=== PATIENT | female | born 1995 | race Caucasian/White ===

== ENCOUNTER → 2019-06-23 12:16 | Outpatient (BNVA) | payer MEDICAID, SELFPAY | PROVIDERS: Family Provider Nurse Practitioner Family; PCP Nurse Practitioner Family; Visit Provider Specialist | DX: G40.409 Other generalized epilepsy and epileptic syndromes, not intractable, without status epilepticus (principal); F84.0 Autistic disorder | CPT/HCPCS: 99214 ==

== ENCOUNTER → 2019-08-12 08:34 | Outpatient (BNVA) | payer MEDICAID, SELFPAY | PROVIDERS: Family Provider Nurse Practitioner Family; PCP Nurse Practitioner Family; Visit Provider Specialist | DX: G24.4 Idiopathic orofacial dystonia (principal); G40.409 Other generalized epilepsy and epileptic syndromes, not intractable, without status epilepticus | CPT/HCPCS: 64612; 99212; J0585 ==

== ENCOUNTER → 2019-11-04 08:23 | Outpatient (BNVA) | payer MEDICAID, SELFPAY | PROVIDERS: Family Provider Nurse Practitioner Family; PCP Nurse Practitioner Family; Visit Provider Specialist | DX: G24.4 Idiopathic orofacial dystonia (principal) | CPT/HCPCS: 64612; 99213; J0585 ==

== ENCOUNTER → 2020-01-11 08:56 | Outpatient (BNVA) | payer MEDICAID, SELFPAY | PROVIDERS: Family Provider Nurse Practitioner Family; PCP Nurse Practitioner Family; Visit Provider Specialist | DX: G40.909 Epilepsy, unspecified, not intractable, without status epilepticus (principal); G24.4 Idiopathic orofacial dystonia | CPT/HCPCS: 99213 ==

== ENCOUNTER → 2020-01-27 08:12 | Outpatient (BNVA) | payer MEDICAID, SELFPAY | PROVIDERS: Family Provider Nurse Practitioner Family; PCP Nurse Practitioner Family; Visit Provider Specialist | DX: G24.4 Idiopathic orofacial dystonia (principal); G40.909 Epilepsy, unspecified, not intractable, without status epilepticus | CPT/HCPCS: 64612; 99212; J0585 ==

== ENCOUNTER → 2020-05-11 08:25 | Outpatient (BNVA) | payer MEDICAID, SELFPAY | PROVIDERS: Family Provider Nurse Practitioner Family; PCP Nurse Practitioner Family; Visit Provider Specialist | DX: G24.4 Idiopathic orofacial dystonia (principal); G40.909 Epilepsy, unspecified, not intractable, without status epilepticus | CPT/HCPCS: 64612; 99212; J0585 ==

== ENCOUNTER → 2020-07-05 08:03 | Outpatient (BNVA) | payer MEDICAID, SELFPAY | PROVIDERS: Family Provider Nurse Practitioner Family; PCP Nurse Practitioner Family; Visit Provider Specialist | DX: G40.909 Epilepsy, unspecified, not intractable, without status epilepticus (principal); G40.409 Other generalized epilepsy and epileptic syndromes, not intractable, without status epilepticus; G24.4 Idiopathic orofacial dystonia | CPT/HCPCS: 99214 ==

== ENCOUNTER → 2020-08-10 08:04 | Outpatient (BNVA) | payer MEDICAID, SELFPAY | PROVIDERS: Family Provider Nurse Practitioner Family; PCP Nurse Practitioner Family; Visit Provider Specialist | DX: G24.4 Idiopathic orofacial dystonia (principal); F40.298 Other specified phobia; G40.909 Epilepsy, unspecified, not intractable, without status epilepticus; G40.409 Other generalized epilepsy and epileptic syndromes, not intractable, without status epilepticus | CPT/HCPCS: 64612; 99213; J0585 ==

== ENCOUNTER → 2020-11-02 08:02 | Outpatient (BNVA) | payer MEDICAID, SELFPAY | PROVIDERS: Family Provider Nurse Practitioner Family; PCP Nurse Practitioner Family; Visit Provider Specialist | DX: G24.4 Idiopathic orofacial dystonia (principal); G40.319 Generalized idiopathic epilepsy and epileptic syndromes, intractable, without status epilepticus; Z71.89 Other specified counseling | CPT/HCPCS: 64612; 99213; J0585 ==

== ENCOUNTER → 2021-01-09 08:10 | Outpatient (BNVA) | payer MEDICAID, SELFPAY | PROVIDERS: Family Provider Nurse Practitioner Family; PCP Nurse Practitioner Family; Visit Provider Specialist | DX: G40.409 Other generalized epilepsy and epileptic syndromes, not intractable, without status epilepticus (principal); G40.309 Generalized idiopathic epilepsy and epileptic syndromes, not intractable, without status epilepticus; G24.4 Idiopathic orofacial dystonia; F40.298 Other specified phobia | CPT/HCPCS: 99214 ==

== ENCOUNTER → 2021-01-25 07:55 | Outpatient (BNVA) | payer MEDICAID, SELFPAY | PROVIDERS: Family Provider Nurse Practitioner Family; PCP Nurse Practitioner Family; Visit Provider Specialist | DX: G24.4 Idiopathic orofacial dystonia (principal); G40.209 Localization-related (focal) (partial) symptomatic epilepsy and epileptic syndromes with complex partial seizures, not intractable, without status epilepticus; G40.309 Generalized idiopathic epilepsy and epileptic syndromes, not intractable, without status epilepticus | CPT/HCPCS: 64612; 99213; J0585 ==

== ENCOUNTER → 2021-05-17 07:57 | Outpatient (BNVA) | payer MEDICAID, SELFPAY | PROVIDERS: Family Provider Nurse Practitioner Family; PCP Nurse Practitioner Family; Visit Provider Specialist | DX: G24.4 Idiopathic orofacial dystonia (principal) | CPT/HCPCS: 64612; G0463; J0585 ==

== ENCOUNTER → 2021-07-10 09:00 | Outpatient (BNVA) | payer MEDICAID, SELFPAY | PROVIDERS: Family Provider Nurse Practitioner Family; PCP Nurse Practitioner Family; Visit Provider Specialist | DX: G24.4 Idiopathic orofacial dystonia (principal); G40.109 Localization-related (focal) (partial) symptomatic epilepsy and epileptic syndromes with simple partial seizures, not intractable, without status epilepticus; G40.409 Other generalized epilepsy and epileptic syndromes, not intractable, without status epilepticus | CPT/HCPCS: 99213; 99214 ==

== ENCOUNTER → 2021-08-16 08:16 | Outpatient (BNVA) | payer MEDICAID, SELFPAY | PROVIDERS: Family Provider Nurse Practitioner Family; PCP Nurse Practitioner Family; Visit Provider Specialist | DX: G24.4 Idiopathic orofacial dystonia (principal); G40.109 Localization-related (focal) (partial) symptomatic epilepsy and epileptic syndromes with simple partial seizures, not intractable, without status epilepticus; G40.409 Other generalized epilepsy and epileptic syndromes, not intractable, without status epilepticus | CPT/HCPCS: 64612; 99212; 99213; J0585 ==

== ENCOUNTER → 2021-11-08 08:03 | Outpatient (BNVA) | payer MEDICAID, SELFPAY | PROVIDERS: Family Provider Nurse Practitioner Family; PCP Nurse Practitioner Family; Visit Provider Specialist | DX: G24.4 Idiopathic orofacial dystonia (principal); G40.409 Other generalized epilepsy and epileptic syndromes, not intractable, without status epilepticus | CPT/HCPCS: 64612; 99213; 99214; J0585 ==

== ENCOUNTER → 2022-01-24 07:52 | Outpatient (BNVA) | payer MEDICAID, SELFPAY | PROVIDERS: Family Provider Nurse Practitioner Family; PCP Nurse Practitioner Family; Visit Provider Specialist | DX: G40.309 Generalized idiopathic epilepsy and epileptic syndromes, not intractable, without status epilepticus (principal); G24.4 Idiopathic orofacial dystonia | CPT/HCPCS: 99213; 99214 ==

== ENCOUNTER → 2022-01-31 09:41 | Outpatient (BNVA) | payer MEDICAID, SELFPAY | PROVIDERS: Family Provider Nurse Practitioner Family; PCP Nurse Practitioner Family; Visit Provider Specialist | DX: G24.4 Idiopathic orofacial dystonia (principal); G40.309 Generalized idiopathic epilepsy and epileptic syndromes, not intractable, without status epilepticus | CPT/HCPCS: 64612; 99212; 99213; J0585 ==

== ENCOUNTER → 2022-02-18 09:42 | Outpatient (BNVA) | payer MEDICAID, SELFPAY | PROVIDERS: Family Provider Nurse Practitioner Family; PCP Nurse Practitioner Family; Visit Provider Surgery | DX: L73.2 Hidradenitis suppurativa (principal) | CPT/HCPCS: 99203 ==

== ENCOUNTER 2022-02-21 08:06 | Day surgery (SDC) | payer MEDICAID, SELFPAY ==
[2022-02-19 13:29] VITALS: BMI 48.5
[2022-02-21] VITALS (8 sets, daily range): BP systolic 108–163; BP diastolic 64–92; PULSE 86–96; RESP 14–20; TEMP 36.8–37.4; O2SAT 94–100
[2022-02-21] MEDS: sodium chloride 0.9% 1,000 ML 30 ML IV (09:01)
--- NOTE | 2022-02-21 09:02 | ANES.PREANE2 ---
Pre-Anesthetic Assessment Height/Weight: Height 1.6 m Weight 124.284 kg Preop Diagnosis: Hidradenitis suppurativa Operation Date: 02/21/22 09:50 Proposed Procedures p 92469 excision left axilla mass L73.2(Left) - Jovanny Persaud DO Familial anesthetic complications: None Was Beta Noelle taken within 24 hours: N/A Was Clonidine taken within 24 hours: N/A Last intake: Intake Last Liquid Date 02/20/22 Last Liquid Time 20:00 Last Solid Date 02/20/22 Last Solid Time 17:30 Social No alcohol and No tobacco Exam alert, oriented x 3, clear to auscultation bilaterally and regular rate & rhythm Airway Mallampati: Class IV Comments: Comments: she has a whole bunch of dental work Metabolic Morbid Obesity Neuropsych Seizure autism Anesthetic Plan ASA status: 3 Anesthesia: General Risk of > 500 ml blood loss (7ml/kg in children): No Medications/Allergies Home Medications Medication Instructions Recorded Confirmed Last Taken Type diazepam 10 mg rectal kit 10 mg [place] Q12H PRN Seizures 06/23/19 02/21/22 Unknown History diazepam 5 mg tablet (Valium) 10 mg PO ONCE PRN anxiety #2 tabs 01/09/21 02/21/22 02/20/22 Rx clobazam 20 mg tablet (Onfi) 60 mg PO BID #180 tabs 12/06/21 02/21/22 02/20/22 Rx lacosamide 200 mg tablet (Vimpat) 200 mg PO BID 90 days #180 tabs 01/24/22 02/21/22 02/20/22 Rx citalopram 40 mg tablet 40 mg PO DAILY 02/19/22 02/21/22 02/20/22 History quetiapine 25 mg tablet 25 mg PO BID 02/19/22 02/21/22 02/18/22 History zonisamide 100 mg capsule 500 mg PO DAILY 02/19/22 02/21/22 02/20/22 History Allergies Allergy/AdvReac Type Severity Reaction Status Date / Time Penicillins Allergy rash Verified 02/21/22 08:48 Current Medications Generic Name Dose Route Start Last Admin Trade Name Freq PRN Reason Stop Dose Admin Sodium Chloride 1,000 mls @ 30 mls/hr 02/21/22 08:30 02/21/22 09:01 Sodium Chloride 0.9% IV 02/22/22 08:29 30 mls/hr .Q24H LYNDA Administration PFSH Anesthesia Medical History (Updated 02/18/22 @ 10:14 by Jovanny Persaud DO) Autism Bipolar 1 disorder, mixed Dental disease Epilepsy Hidradenitis suppurativa No pertinent family history Surgical History History of salpingectomy Dr. Sue Family History Other No pertinent family history Social History Smoking and tobacco status: never smoked Alcohol intake: never History of recent travel: No Data Anesthesia Cardiac Studies: No Data to Display
--- NOTE | 2022-02-21 09:42 | W.PM.OPSUD ---
Surgery/Procedure H&P Update DATE OF PROCEDURE: February 21, 2022 DATE H&P PERFORMED: 02/18/22 PREOP DIAGNOSIS: Hidradenitis suppurativa PLANNED PROCEDURE: Operation Date: 02/21/22 09:50 Proposed Procedures p 67956 excision left axilla mass L73.2(Left) - Jovanny Persaud DO
[2022-02-21] MEDS: vancomycin 1,500 MG/300 ML PIGGYBACK 200 MG IV (10:20)
--- NOTE | 2022-02-21 11:32 | PM.OP ---
Operative Report Date of procedure: February 21, 2022 Pre-op diagnosis: Preop Diagnosis Hidradenitis suppurativa Post-op diagnosis: same Procedure done: Skin excision left axilla Specimens removed/disposition: Skin excision left axilla Surgeon: Dr. Jovanny Persaud DO Anesthesia: General Estimated blood loss (mL): 5 Complications: None apparent Brief History: This is a pleasant 26-year-old female with hidradenitis suppurativa of the left axilla. Skin excision was indicated. The risks and benefits were explained and documented. Procedure: The area was inspected prepped and draped in the usual sterile fashion. 2% lidocaine with epinephrine was used to anesthetize the skin in the left axilla. A 15 blade scalpel then used to make an elliptical excision measuring 9 centimeters in length. Incision was carried down to subcutaneous fat with both scalpel and Bovie cautery, and the specimen was passed off. 3-0 Vicryl was used to approximate the dermis, and 3-0 nylon was use to close the skin in a simple interrupted fashion. Sterile bandage was applied. Patient tolerated the procedure well.
--- NOTE | 2022-02-21 11:59 | SUR.PHASEI ---
1148 PT TO PACU SLEEPY WITH GOOD RESP EFFORT, ORAL AIRWAY IN PLACE DRESSING TO LT AXILLARY AREA D/I IV TO RT FA WITH NS 600ML UP AT KVO RATE PER GRAVITY, ID BRACELET TO LT WRIST, PT ID'D WITH 2 IDENTIFIERS, BILAT SCDS ON. 1155 PT AWAKES COUGHS, TURNS HEAD AND ORAL AIRWAY REMOVED, PT ALERT LOOKING AROUND, RESP EVEN AND UNLABORED PT COUGHS TO COMMAND MONITOR AND DRESSING UNCHANGED PT ON RA TRIAL FOR COMFORT.
--- NOTE | 2022-02-21 12:12 | SUR.PHASEI ---
PT AWAKE ALERT LOOKING AROUND FOR FAMILIAR FACE, GOOD RESP EFFORT VSS, PT SHRUGS WHEN ASKED IF SHE WANTS SOMETHING TO DRINK PT TO OPS AREA TO MOM . PT HANDOFF DONE AT BEDSIDE WITH SHELLY RAMÍREZ.
[2022-02-21] MEDS: HYDROcodone-acetaminophen 7.5-325 mg Tablet 1 TAB PO (12:22)
--- NOTE | 2022-02-21 13:38 | ANE.PACU2 ---
Inpatient post-anesthesia follow up: Airway intact: Yes Vital signs: Temperature 98.4 F Pulse Rate 96 Respiratory Rate 18 Blood Pressure 140/76 Pulse Oximetry 96 Oxygen Delivery Me thod Room Air Oxygen Flow Rate 8 Fraction of Inspir ed Oxygen Hydration adequate: Yes Nausea and vomiting: No Pain level: 1 Mental status: Baseline
== END 2022-02-21 12:45 | disposition home or self-care (01) ==
PROVIDERS: PCP Nurse Practitioner Family; Visit Provider Surgery
PROC: (CPT 11450; principal; 2022-02-21 09:40)
DX: L73.2 Hidradenitis suppurativa (principal); E66.01 Morbid (severe) obesity due to excess calories; Z68.42 Body mass index [BMI] 45.0-49.9, adult; F84.0 Autistic disorder; F31.9 Bipolar disorder, unspecified; G40.909 Epilepsy, unspecified, not intractable, without status epilepticus
CPT/HCPCS: 11450; 81025; 88309; J0330; J1100; J2405; J2704; J3010; J3370; J7030

== ENCOUNTER 2022-03-07 10:42 | Emergency (ER) | payer MEDICAID, SELFPAY ==
[2022-03-07 11:01] VITALS: BMI 47.8
[2022-03-07 11:15] VITALS: BP 151/105; PULSE 109; RESP 18; O2SAT 96
--- NOTE | 2022-03-07 11:15 | ECG_ITS ---
[facility] Test Date: 2022-03-07 Pat Name: Bryan Salgado Department: Room: Gender: Female Transport Driver: : 1995 Requested By: Prateek Bishop Order Number: [id number] Jose MD: Jose Manuel Leiva M.D. Measurements Intervals [place] Rate: 101 P: 77 MO: 167 QRS: -41 QRSD: 99 T: 43 QT: 332 QTc: 432 Interpretive Statements SINUS TACHYCARDIA LEFT AXIS DEVIATION [QRS AXIS < -30] POSSIBLE ANTERIOR MYOCARDIAL INFARCTION , OF INDETERMINATE AGE [30 ms Q WAVE IN V3/V4, OR R < 0.2 mV IN V4] Compared to ECG 01/07/2016 11:40:19 Myocardial infarct finding now present Incomplete right bundle-branch block no longer present Electronically Signed On 03-08-2022 6:26:17 PSYCHOSOCIAL REHABILITATION COUNSELOR by Jose Manuel Leiva M.D. [id number]
--- NOTE | 2022-03-07 11:20 | ED_ITS ---
HPI - Neuro Symptoms/Deficit General: Chief Complaint: Neuro Symptoms/Deficit Stated Complaint: Left arm and leg stiffness Time Seen by Provider: 03/07/22 10:44 Limitations: physical limitation (Nonverbal) History of Present Illness: Ms. Salgado is a 26-year-old lady with complex past medical history including seizures, dystonia, cerebral palsy presenting to the emergency department due to 2 concerns. First is that family noticed that she seemed to be favoring her right side with some evidence of pain with range of motion of the right arm and an abnormal gait. This was first noticed this morning. No specific known inciting event and was not present yesterday. Additionally the patient had surgery for hidradenitis suppurativa approximately 2 weeks ago and now has drainage which was noticed today. History otherwise limited by patient's nonverbal status. Onset (ago): hour(s) Review of Systems General: Reports: ROS unobtainable due to medical condition PFS ED PFSH: Medical History Autism Bipolar 1 disorder, mixed Dental disease Epilepsy Hidradenitis suppurativa No pertinent family history Surgical History History of salpingectomy Dr. Sue Family History Other No pertinent family history Social History Smoking and tobacco status: never smoked Alcohol intake: never History of recent travel: No Female Reproductive History: Date of last menstrual period: 02/25/22 Physical Exam Const: COMMON NORMALS: alert GENERAL APPEARANCE: cooperative and well developed HENMT: COMMON NORMALS: normocephalic and atraumatic HEAD & SCALP: normocephalic and atraumatic Eye: COMMON NORMALS: conjunctivae normal CONJUNCTIVA: Yes conjunctivae no rmal SCLERA: sclerae normal OTHER: Disconjugate gaze Neck/C-Spine: COMMON NORMALS: supple GENERAL: Yes trachea midline Resp: COMMON NORMALS: normal respiratory effort and clear to auscultation bilaterally AUSCULTATION: clear to auscultation bilaterally Cardio: COMMON NORMALS: regular rate and regular rhythm RATE: regular rate RHYTHM: regular rhythm GI: COMMON NORMALS: Soft to palpation PALPATION: Yes Soft to palpation and No Tenderness to palpation present (GI) Extremity: NARRATIVE EXTREMITY EXAM: No obvious grimace or pain with range of motion or palpation of extremities on the right. GENERAL: Yes normal exam except as noted and No edema Neuro: SENSORIUM/ORIENTATION: Yes alert Course Vital Signs: Vital signs: Vital Signs Pulse Rate 83 03/07/22 15:13 Respiratory Rate 16 03/07/22 15:13 Blood Pressure 117/82 03/07/22 15:13 Pulse Oximetry 97 03/07/22 15:13 Oxygen Delivery Me thod 03/07/22 11:15 MDM - Neuro Symptoms/Deficit Medical Decision Making 26-year-old lady with complex history presenting with concern over possible pain and also drainage from surgical site. Exam as above. Small amount of localized erythema and scant purulent drainage from surgical site. COVID EKG shows sinus tachycardia with no STEMI Labs with leukocytosis, normal hemoglobin. Metabolic panel without significant derangement requiring intervention. X-rays negative for acute pathology. Patient appears somewhat improved with analgesia. Clindamycin given for superficial infection. Exact etiology of patient's discomfort is unclear though seems musculoskeletal nature. The results of ED evaluation were discussed with the caregiver including prescriptions and/or symptomatic cares (if applicable) including appropriate and responsible use, followup plan, and return precautions. The caregiver verbalized understanding and felt safe for discharge. Medical Records I reviewed the patient's medical records. Lab Data I reviewed the patient's lab results. 03/07/22 12:27 03/07/22 12:27 Radiology Impressions Cervical Spine X-Ray 03/07/22 11:31 IMPRESSION: 1. No fracture or dislocation noted based on images presented. Hip/Pelvis X-Ray 03/07/22 11:31 IMPRESSION: 1. Negative right hip. Shoulder X-Ray 03/07/22 11:31 IMPRESSION: Negative right shoulder. Laboratory Results WBC 14.1 10^3/uL (4.0-10.0) H 03/07/22 12:27 RBC 4.82 10^6/uL (4.1-5.3) 03/07/22 12:27 Hgb 14.2 g/dL (11.5-15.3) 03/07/22 12:27 Hct 45.9 % (37.0-47.0) 03/07/22 12:27 MCV 95.2 fl (81-99) 03/07/22 12:27 MCH 29.5 pg (28.0-34.0) 03/07/22 12:27 MCHC 30.9 g/dL (30.0-36.0) 03/07/22 12:27 RDW 12.2 % (12.1-15.1) 03/07/22 12:27 Plt Count 163 10^3/cmm (130-400) 03/07/22 12:27 MPV 8.5 fL (7.4-10.4) 03/07/22 12: Neut % (Auto) 72.2 % 03/07/22 12: Lymph % (Auto) 21.4 % 03/07/22 12: [place] % (Auto) 4.5 % 03/07/22 12: Eos % (Auto) 1.1 % 03/07/22 12: Baso % (Auto) 0.4 % 03/07/22 12:27 Neut # (Auto) 10.18 10^3/uL (1.8-7.7) H 03/07/22 12:27 Lymph # (Auto) 3.0 10^3/uL (0.8-4.8) 03/07/22 12:27 [place] # (Auto) 0.6 10^3/uL (0.2-0.9) 03/07/22 12:27 Eos # (Auto) 0.2 10^3/uL (0.0-0.8) 03/07/22 12:27 Baso # (Auto) 0.1 10^3/uL (0.0-0.1) 03/07/22 12:27 Nucleated RBC % (auto) 0 % 03/07/22 12:27 Nucleated RBCs # 0.0 /100WBC 03/07/22 12:27 Sodium 138 mmol/L (136-145) 03/07/22 12:27 Potassium 4.2 mmol/L (3.5-5.1) 03/07/22 12:27 Chloride 106 mmol/L (98-107) 03/07/22 12:27 Carbon Dioxide 20 mmol/L (22-29) L 03/07/22 12:27 Anion Gap 16.2 (5-19) 03/07/22 12:27 BUN 14 mg/dL (6-20) 03/07/22 12:27 Creatinine 0.7 mg/dL (0.5-0.9) 03/07/22 12:27 GFR Calculation 102.0 mL/min (90-130) 03/07/22 12:27 Glucose 79 mg/dL (65-115) 03/07/22 12:27 Calculated Osmolality 285 mOsm/kg (285-295) 03/07/22 12:27 Calcium 9.6 mg/dL (8.5-10.5) 03/07/22 12:27 Discharge Plan Discharge Patient Disposition: Home Clinical Impression: Arm and leg pain, Post op infection Condition: Stable Prescriptions: New cyclobenzaprine 10 mg tablet 10 mg PO TID PRN (Reason: muscle spasm) Qty: 20 0RF No Action diazepam 10 mg kit 10 mg AK Q12H PRN (Reason: Seizures) lacosamide [Vimpat] 200 mg tablet 200 mg PO BID 90 Days Qty: 180 3RF clobazam [Onfi] 20 mg tablet 60 mg PO BID Qty: 180 5RF Rx Instructions: 3 tablets in the AM and 3 tablets at night quetiapine 25 mg tablet 25 mg PO BID PRN (Reason: Agitation) Rx Instructions: TAKE ONE TABLET BY MOUTH TWICE DAILY citalopram 40 mg tablet 40 mg PO DAILY Rx Instructions: TAKE ONE TABLET BY MOUTH DAILY zonisamide 100 mg capsule 500 mg PO BEDTIME Discharge Orders: Discharge ED (Routine); Ordered 03/07/22 Ordered By: Prateek Bishop Referrals: Concha Ruff FNP-C [Primary Care Provider] - Discharge Diet: Usual diet Discharge Activity: Increase activity as tolerated Patient Instructions: Cellulitis (ED), Musculoskeletal Pain (ED), Pain Management Activity Restrictions/Additional Instructions: Thank you for visiting the emergency department. You were seen and evaluated for abnormal arm and leg use as well as drainage from postoperative site. The exact cause of the abnormal movements/pain is unclear though likely related to musculoskeletal pain. I do believe that there is mild infection associated with the postoperative site which will be treated with antibiotics. Please follow-up with your primary care provider. Please return to the emergency department for worsening symptoms, nausea, vomiting, any new neurologic symptoms, fevers, or anything else that you are concerned about a feel needs emergency department evaluation. Coding Level of Care Code ED Application Support Lead for Chg Fwd Exam Comprehensive
--- NOTE | 2022-03-07 11:31 | XR_ITS ---
WS: [id number] Exam: XR shoulder RT min 2V* [id number] Date/Time of Exam: 03/07/2022 11:36 AM Reason For Exam: pain, limited rom The projections of the shoulder reveal no fractures, anomalies, soft tissue swelling, or calcificatio ns. There is normal bony alignment. No irregularity of the bony architecture is noted. XR/XR shoulder RT min 2V* [id number] IMPRESSION: Negative right shoulder.
--- NOTE | 2022-03-07 11:31 | XR_ITS ---
WS: [id number] Exam: XR hip RT 2-3V wo/w pel* [id number] Date/Time of Exam: 03/07/2022 11:36 AM Reason For Exam: pain, antalgic gait No fracture or dislocation. The joint compartment is well preserved. Normal soft tissues. XR/XR hip RT 2-3V wo/w pel* [id number] IMPRESSION: 1. Negative right hip.
--- NOTE | 2022-03-07 11:31 | XR_ITS ---
WS: [id number] Exam: XR cervical spine 3V* [id number] Date/Time of Exam: 03/07/2022 11:36 AM Reason For Exam: R arm/shoulder pain No acute fracture or dislocation. The lower endplate of C7 is not visible on the lateral view. The od ontoid is intact. Normal paraspinal soft tissues. There is side bending of the cervical spine with le ft convexity. This could be positional or might represent torticollis. XR/XR cervical spine 3V* [id number] IMPRESSION: 1. No fracture or dislocation noted based on images presented.
[2022-03-07] MEDS: acetaminophen 500 mg Tablet 1000 MG PO (12:09)
[2022-03-07] MEDS: ketorolac 30 mg/mL INJ 15 MG IVP (12:23)
[2022-03-07 12:53] LABS: Basophils # 0.1 10^3/uL (0.0-0.1); Basophils % 0.4 %; Eosinophils # 0.2 10^3/uL (0.0-0.8); Eosinophils % 1.1 %; Hematocrit 45.9 % (37.0-47.0); Hemoglobin 14.2 g/dL (11.5-15.3); Lymphocytes % 21.4 %; Mean Corpuscular HGB Conc 30.9 g/dL (30.0-36.0); Mean Corpuscular Hemoglobin 29.5 pg (28.0-34.0); Mean Corpuscular Volume 95.2 fl (81-99); Mean Platelet Volume 8.5 fL (7.4-10.4); Monocytes # 0.6 10^3/uL (0.2-0.9); Monocytes % 4.5 %; Neutrophils # 10.18 10^3/uL (1.8-7.7); Neutrophils % 72.2 %; Nucleated Red Blood Cells % 0 %; Platelet Count 163 10^3/cmm (130-400); Red Blood Count 4.82 10^6/uL (4.1-5.3); Red Cell Distribution Width 12.2 % (12.1-15.1); White Blood Count 14.1 10^3/uL (4.0-10.0)
[2022-03-07 13:15] LABS: Blood Urea Nitrogen 14 mg/dL (6-20); Calcium 9.6 mg/dL (8.5-10.5); Carbon Dioxide 20 mmol/L (22-29); Chloride 106 mmol/L (98-107); Glucose 79 mg/dL (65-115); Osmolality Calculated 285 mOsm/kg (285-295); Sodium 138 mmol/L (136-145)
[2022-03-07 13:20] LABS: Anion Gap 16.2 (5-19); Potassium 4.2 mmol/L (3.5-5.1)
[2022-03-07] MEDS: clindamycin 600 MG/50 ML PREMIX 100 MG IV (14:11)
[2022-03-07 15:13] VITALS: BP 117/82; PULSE 83; RESP 16; O2SAT 97
== END 2022-03-07 15:15 | disposition home or self-care (01) ==
PROVIDERS: Emergency Provider Emergency Medicine; PCP Nurse Practitioner Family
DX: M79.605 Pain in left leg (principal); M79.604 Pain in right leg; M79.602 Pain in left arm; M79.601 Pain in right arm; T81.49XA Infection following a procedure, other surgical site, initial encounter; Y83.8 Other surgical procedures as the cause of abnormal reaction of the patient, or of later complication, without mention of misadventure at the time of the procedure
CPT/HCPCS: 36415; 72040; 73030; 73502; 80048; 85025; 87040; 93005; 96365; 96375; 99285; J1885; J3490

== ENCOUNTER → 2022-03-12 08:50 | Outpatient (BNVA) | payer MEDICAID, SELFPAY | PROVIDERS: PCP Nurse Practitioner Family; Visit Provider Surgery | DX: L73.2 Hidradenitis suppurativa (principal) | CPT/HCPCS: 99213 ==

== ENCOUNTER → 2022-03-18 13:07 | Outpatient (BNVA) | payer MEDICAID, SELFPAY | PROVIDERS: PCP Nurse Practitioner Family; Visit Provider Surgery | DX: L73.2 Hidradenitis suppurativa (principal) | CPT/HCPCS: 99213 ==

== ENCOUNTER → 2022-04-25 08:01 | Outpatient (BNVA) | payer MEDICAID, SELFPAY | PROVIDERS: PCP Nurse Practitioner Family; Visit Provider Specialist | DX: G24.4 Idiopathic orofacial dystonia (principal); G40.309 Generalized idiopathic epilepsy and epileptic syndromes, not intractable, without status epilepticus | CPT/HCPCS: 64612; 99212; J0585 ==

== ENCOUNTER → 2022-07-24 10:55 | Outpatient (BNVA) | payer MEDICAID, SELFPAY | PROVIDERS: PCP Nurse Practitioner Family; Visit Provider Nurse Practitioner Family | DX: S93.402A Sprain of unspecified ligament of left ankle, initial encounter (principal); X58.XXXA Exposure to other specified factors, initial encounter; S82.65XA Nondisplaced fracture of lateral malleolus of left fibula, initial encounter for closed fracture | CPT/HCPCS: 73610 ==

== ENCOUNTER → 2022-07-25 10:19 | Outpatient (BNVA) | payer MEDICAID, SELFPAY | PROVIDERS: PCP Nurse Practitioner Family; Visit Provider Specialist | DX: G24.4 Idiopathic orofacial dystonia (principal); G40.309 Generalized idiopathic epilepsy and epileptic syndromes, not intractable, without status epilepticus | CPT/HCPCS: 64612; 99213; J0585 ==

== ENCOUNTER → 2022-07-26 11:14 | Outpatient (BNVA) | payer MEDICAID, SELFPAY | PROVIDERS: PCP Nurse Practitioner Family; Visit Provider Podiatrist Foot & Ankle Surgery | DX: S82.65XA Nondisplaced fracture of lateral malleolus of left fibula, initial encounter for closed fracture (principal); W19.XXXA Unspecified fall, initial encounter; F84.0 Autistic disorder | CPT/HCPCS: 99203; L4361 ==

== ENCOUNTER → 2022-08-09 10:27 | Outpatient (BNVA) | payer MEDICAID, SELFPAY | PROVIDERS: PCP Nurse Practitioner Family; Visit Provider Podiatrist Foot & Ankle Surgery | DX: S82.402A Unspecified fracture of shaft of left fibula, initial encounter for closed fracture (principal); F84.0 Autistic disorder; W19.XXXA Unspecified fall, initial encounter | CPT/HCPCS: 73610; 99213 ==

== ENCOUNTER → 2022-08-30 09:41 | Outpatient (BNVA) | payer MEDICAID, SELFPAY | PROVIDERS: PCP Nurse Practitioner Family; Visit Provider Podiatrist Foot & Ankle Surgery | DX: S82.62XA Displaced fracture of lateral malleolus of left fibula, initial encounter for closed fracture (principal); W19.XXXA Unspecified fall, initial encounter; F84.0 Autistic disorder | CPT/HCPCS: 73610; 99213 ==

== ENCOUNTER → 2022-09-20 09:46 | Outpatient (BNVA) | payer MEDICAID, SELFPAY | PROVIDERS: PCP Nurse Practitioner Family; Visit Provider Podiatrist Foot & Ankle Surgery | DX: S82.62XA Displaced fracture of lateral malleolus of left fibula, initial encounter for closed fracture (principal); W19.XXXA Unspecified fall, initial encounter | CPT/HCPCS: 73610; 99213 ==

== ENCOUNTER → 2022-10-31 10:37 | Outpatient (BNVA) | payer MEDICAID, SELFPAY | PROVIDERS: PCP Nurse Practitioner Family; Visit Provider Specialist | DX: G24.4 Idiopathic orofacial dystonia (principal); G40.309 Generalized idiopathic epilepsy and epileptic syndromes, not intractable, without status epilepticus; F84.0 Autistic disorder; F80.9 Developmental disorder of speech and language, unspecified | CPT/HCPCS: 64612; 99213; J0585 ==

== ENCOUNTER → 2023-01-30 10:28 | Outpatient (BNVA) | payer MEDICAID, SELFPAY | PROVIDERS: PCP Nurse Practitioner Family; Visit Provider Specialist | DX: G40.309 Generalized idiopathic epilepsy and epileptic syndromes, not intractable, without status epilepticus (principal); G24.4 Idiopathic orofacial dystonia | CPT/HCPCS: 64612; 99213; J0585 ==

== ENCOUNTER → 2023-05-08 12:09 | Outpatient (BNVA) | payer MEDICAID, SELFPAY | PROVIDERS: PCP Nurse Practitioner Family; Visit Provider Specialist | DX: G24.4 Idiopathic orofacial dystonia (principal); G40.309 Generalized idiopathic epilepsy and epileptic syndromes, not intractable, without status epilepticus | CPT/HCPCS: 64612; 99213; J0585 ==

== ENCOUNTER → 2023-08-14 13:16 | Outpatient (BNVA) | payer MEDICAID, SELFPAY | PROVIDERS: PCP Nurse Practitioner Family; Visit Provider Specialist | DX: G24.4 Idiopathic orofacial dystonia (principal); F84.0 Autistic disorder; F80.9 Developmental disorder of speech and language, unspecified | CPT/HCPCS: 64612; 99212; 99213; J0585 ==

== ENCOUNTER → 2023-11-13 12:53 | Outpatient (BNVA) | payer MEDICAID, SELFPAY | PROVIDERS: PCP Nurse Practitioner Family; Visit Provider Specialist | DX: G24.4 Idiopathic orofacial dystonia (principal); F84.0 Autistic disorder; F80.9 Developmental disorder of speech and language, unspecified | CPT/HCPCS: 64612; 99214; J0585 ==

== ENCOUNTER → 2024-02-06 13:06 | Outpatient (BNVA) | payer MEDICAID, SELFPAY | PROVIDERS: PCP Nurse Practitioner Family; Visit Provider Specialist | DX: G24.4 Idiopathic orofacial dystonia (principal); F84.0 Autistic disorder; F80.9 Developmental disorder of speech and language, unspecified | CPT/HCPCS: 64612; 99213; J0585 ==

== ENCOUNTER → 2024-03-16 09:21 | Outpatient (BNVA) | payer MEDICAID, SELFPAY | PROVIDERS: PCP Nurse Practitioner Family; Referring Provider Specialist; Visit Provider Internal Medicine Cardiovascular Disease | DX: G40.309 Generalized idiopathic epilepsy and epileptic syndromes, not intractable, without status epilepticus (principal); I45.2 Bifascicular block; R00.0 Tachycardia, unspecified | CPT/HCPCS: 93005 ==

== ENCOUNTER → 2024-03-30 08:39 | Outpatient (BNVA) | payer MEDICAID, SELFPAY | PROVIDERS: PCP Nurse Practitioner Family; Visit Provider Nurse Practitioner | DX: Z13.6 Encounter for screening for cardiovascular disorders (principal); Z79.899 Other long term (current) drug therapy | CPT/HCPCS: 80053; 80061; 84443; 85025 ==

== ENCOUNTER → 2024-05-07 13:19 | Outpatient (BNVA) | payer MEDICAID, SELFPAY | PROVIDERS: PCP Nurse Practitioner Family; Visit Provider Specialist | DX: G24.4 Idiopathic orofacial dystonia (principal); F84.0 Autistic disorder; F80.9 Developmental disorder of speech and language, unspecified | CPT/HCPCS: 99213; J0585 ==

== ENCOUNTER → 2024-06-01 14:43 | Outpatient (BNVA) | payer MEDICAID, SELFPAY | PROVIDERS: PCP Nurse Practitioner Family; Visit Provider Internal Medicine Cardiovascular Disease | DX: F80.9 Developmental disorder of speech and language, unspecified (principal); G24.4 Idiopathic orofacial dystonia; F84.0 Autistic disorder; E66.813 Obesity, class 3; E66.01 Morbid (severe) obesity due to excess calories; Z68.43 Body mass index [BMI] 50.0-59.9, adult; G40.909 Epilepsy, unspecified, not intractable, without status epilepticus; R94.31 Abnormal electrocardiogram [ECG] [EKG] | CPT/HCPCS: 99204 ==

== ENCOUNTER 2024-06-23 11:10 | Emergency (ER) | payer MEDICAID, SELFPAY ==
[2024-06-23 11:22] VITALS: BP 153/109; PULSE 96; RESP 16; TEMP 36.8; O2SAT 95; BMI 50.1
--- NOTE | 2024-06-23 11:25 | ED_ITS ---
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 She has fairly severe autism and will not provide any history for me here. Mom says that she woke up today and was leaning to the left and she felt like this was because of pain in her abdomen. She seems to be improved somewhat now. I cannot elicit any pain response whenever I palpate her abdomen. Otherwise she seems to be at her baseline. No focal motor deficits. No reported fevers or cough. Related Data Home Medications ?Medication ?Instructions ?Recorded ?Confirmed cenobamate 100 mg tablet (Xcopri) 100 mg PO DAILY 09/1206/23/24 citalopram 40 mg tablet 40 mg PO DAILY 06/23/2409/12 Previous Rx's ?Medication ?Instructions ?Recorded lacosamide 200 mg tablet (Vimpat) 200 mg PO BID 90 day s #180 tabs 02/17/24 zonisamide 100 mg capsule See Rx Instructions .Route 1 .COMPLEX #180 caps clobazam 20 mg tablet (Onfi) See Rx Instructions PO .C OMPLEX 05/28/24 #150 tabs Allergies Allergy/AdvReac Type Severity Reaction Status Date / Time Penicillins Allergy rash Verified 06/01/24 14:53 Review of Systems 2 General: Reports: ROS unobtainable due to medical condition PFSH ED 2 PFSH: Medical History Hidradenitis suppurativa Autism Dental disease Epilepsy Bipolar 1 disorder, mixed Surgical History History of axillary surgery Left Hidradenitis suppurative [address] Sue only one tube 2014 Family History Father Congenital heart disease Grandfather Cancer Other Alcohol dependence Diabetes Social History Smoking and tobacco/nicotine status: never used tobacco/nicotine Second hand smoke exposure: No Alcohol intake: never Substance/Drug Use: never Adopted: No Caregiver/support person: No Lives independently: No Household members: family Housing: House Marital status: Single Number of children: 0 Highest education level completed: 3rd Grade service: No Current occupational status: disabled Current occupational exposures/hazards: No Pets and animals: Yes Pets & animals: cat(s) and dog(s) Do you think of yourself as: Straight/Heterosexual Current gender identity: Female Physical Exam 2 Narrative: EXAM NARRATIVE: General: Alert, no acute distress. Skin: Warm, dry. Head: Normocephalic, atraumatic. Neck: Supple, trachea midline. Eye: Extraocular movements are intact. Ears, nose, mouth and throat: mucosa moist. Cardiovascular: Regular, Normal peripheral perfusion. Respiratory: Lungs are clear to auscultation, respirations are non-labored, breath sounds are equal, Symmetrical chest wall expansion. Gastrointestinal: Soft, Nontender, Non distended Musculoskeletal: Normal ROM, no deformity. Neurological: Alert No focal neurological deficit observed. Psychiatric: Autism and developmental delay unable to assess fully Course 2 Vital Signs: Vital signs: Vital Signs Temperature 98.3 F 06/23/24 11:22 Pulse Rate 96 06/23/24 11:22 Respiratory Rate 16 06/23/24 11:22 Blood Pressure 153/109 06/23/24 11:22 Pulse Oximetry 92 06/23/24 12:30 Oxygen Delivery Me thod Room Air 06/23/24 11:22 MDM - Abdominal Pain Medical Decision Making Medical decision making: Differential diagnosis for this patient with right lower quadrant abdominal pain including but not limited to and based on the above HPI, review of systems and physical exam: Ureterolithiasis. Urinary tract infection. Appendicitis. colitis. small bowel obstruction. Crohn's flare. Pancreatitis. Cholelithiasis or cholecystitis. Hepatitis. Diverticulitis. Constipation. ovarian cyst. ovarian torsion Workup: Orders were placed to evaluate differential diagnosis based on the above differential, HPI and exam: Lab Review: Laboratory results were reviewed and interpreted by myself the emergency room physician. No leukocytosis. No anemia. No renal failure. Urinalysis is negative for infection. CT of the abdomen pelvis: No acute process. This was reviewed and interpreted by myself the emergency room physician. I also reviewed the radiology report. I reviewed the patient's medical record Reexamination: Patient remained stable. No increased work of breathing. No altered mental status. No focal motor deficits. She does not appear to be in any pain any longer. Assessment and plan: Abdominal pain - Discharged home - Discussed plan with parent. Answered any questions. - Evaluation and treatment of this problem were appropriate in the emergency setting. Lab Data 06/23/24 12:02 06/23/24 12:02 Labs/Radiology: Radiology Impressions Abdomen/Pelvis CT 06/23/24 12:35 IMPRESSION: 1. No acute abdominal or pelvic abnormalities. 2. Normal appendix. 3. No GI tract obstruction. 4. No renal obstruction. 5. Suspect cholelithiasis. No evidence for acute cholecystitis by CT. Follow-up RIGHT upper quadrant ultrasound would add additional information concerning the gallbladder. Laboratory Results WBC 10.74 10^3/uL (3.29-11.43) 06/23/24 12:02 RBC 4.70 10^6/uL (3.85-5.65) 06/23/24 12:02 Hgb 13.90 g/dL (11.27-16.99) 06/23/24 12:02 Hct 44.6 % (36-47) 06/23/24 12:02 MCV 94.9 fl (85-98) 06/23/24 12:02 MCH 29.6 pg (27-33) 06/23/24 12:02 MCHC 31.2 g/dL (30-55) 06/23/24 12:02 RDW 13.2 % (12.1-15.1) 06/23/24 12:02 Plt Count 164 10^3/cmm (157-399) 06/23/24 12:02 MPV 8.1 fL (7.4-10.4) 06/23/24 12:02 Neut % (Auto) 67.4 % 06/23/24 12:02 Lymph % (Auto) 27.4 % 06/23/24 12:02 [place] % (Auto) 4.2 % 06/23/24 12:02 Eos % (Auto) 0.1 % 06/23/24 12:02 Baso % (Auto) 0.5 % 06/23/24 12:02 Neut # (Auto) 7.25 10^3/uL (1.8-7.7) 06/23/24 12:02 Lymph # (Auto) 2.9 10^3/uL (0.8-4.8) 06/23/24 12:02 [place] # (Auto) 0.5 10^3/uL (0.2-0.9) 06/23/24 12:02 Eos # (Auto) 0.0 10^3/uL (0.0-0.8) 06/23/24 12:02 Baso # (Auto) 0.1 10^3/uL (0.0-0.1) 06/23/24 12:02 Nucleated RBC % (auto) 0 % 06/23/24 12:02 Nucleated RBCs # 0.0 /100WBC 06/23/24 12:02 Sodium 143 mmol/L (136-145) 06/23/24 12:02 Potassium 4.2 mmol/L (3.5-5.1) 06/23/24 12:02 Chloride 107 mmol/L (98-107) 06/23/24 12:02 Carbon Dioxide 25 mmol/L (22-29) 06/23/24 12:02 Anion Gap 15.2 (5-19) 06/23/24 12:02 BUN 14 mg/dL (6-20) 06/23/24 12:02 Creatinine 1.0 mg/dL (0.5-0.9) H 06/23/24 12:02 GFR Calculation 66.5 mL/min (90-130) L 06/23/24 12:02 Glucose 92 mg/dL (65-115) 06/23/24 12:02 Calculated Osmolality 296 mOsm/kg (285-295) H 06/23/24 12:02 Lactic Acid 1.2 mmol/L (0.5-2.2) 06/23/24 12:02 Calcium 9.6 mg/dL (8.5-10.5) 06/23/24 12:02 Total Bilirubin 0.2 mg/dL (0.15-1.2) 06/23/24 12:02 AST 16 U/L (0-32) 06/23/24 12:02 ALT 20 U/L (0-33) 06/23/24 12:02 Alkaline Phosphatase 105 U/L (35-105) 06/23/24 12:02 Total Protein 7.3 g/dL (6.6-8.7) 06/23/24 12:02 Albumin 4.0 g/dL (3.5-5.2) 06/23/24 12:02 Globulin 3.3 g/dL (1.3-4.6) 06/23/24 12:02 Lipase 43 U/L (13-60) 06/23/24 12:02 HCG, Qual Negative (Negative) 06/23/24 12:36 Urine Color Yellow (Yellow) 06/23/24 12:36 Urine Appearance Turbid (CLEAR) A 06/23/24 12:36 Urine pH 7.5 (5-7) 06/23/24 12:36 Ur Specific [place] 1.017 (1.005-1.030) 06/23/24 12:36 Urine Protein Negative (Negative) 06/23/24 12:36 Urine Glucose (UA) Negative (Normal) 06/23/24 12:36 Urine Ketones Negative (Negative) 06/23/24 12:36 Urine Blood Negative (Negative) 06/23/24 12:36 Urine Nitrate Negative (Negative) 06/23/24 12:36 Urine Bilirubin Negative (Negative) 06/23/24 12:36 Urine Urobilinogen 0.2 mg/dL (Negative) 06/23/24 12:36 Ur Leukocyte Esterase Negative (Negative) 06/23/24 12:36 Urine RBC None /hpf (0-2) 06/23/24 12:36 Urine WBC None /hpf (0-5) 06/23/24 12:36 Ur Squamous Epith Cells 5-10 /hpf (0-5) H 06/23/24 12:36 Amorphous Sediment 2+ /hpf 06/23/24 12:36 Urine Bacteria Trace /hpf (NONE) 06/23/24 12:36 Influenza A (PCR) Negative (Negative) 06/23/24 11:44 Influenza Type B (PCR) Negative (Negative) 06/23/24 11:44 RSV (PCR) Negative (Negative) 06/23/24 11:44 SARS-CoV-2 (PCR) Negative (Negative) 06/23/24 11:44 All radiology interpretation(s) finalized by discharge Discharge Plan Discharge Patient Disposition: Home Clinical Impression: Abdominal pain Condition: Stable Prescriptions: No Action Botox 100 unit recon soln 300 unit IM ONCE Qty: 3 0RF zonisamide 100 mg capsule See Rx Instructions .ROUTE .COMPLEX Qty: 180 5RF Dose Instruction: TAKE 5 CAPSULES BY MOUTH DAILY Rx Instructions: TAKE 5 CAPSULES BY MOUTH DAILY lacosamide [Vimpat] 200 mg tablet 200 mg PO BID 90 Days Qty: 180 3RF clobazam [Onfi] 20 mg tablet See Rx Instructions PO .COMPLEX Qty: 150 5RF Rx Instructions: TAKE 2 TABLET IN THE AM AND 3 TABLETS AT NIGHT orally; 2 tablets in the AM and 3 tablets at night citalopram 40 mg tablet 40 mg PO DAILY Rx Instructions: TAKE ONE TABLET BY MOUTH DAILY Xcopri 100 mg tablet 100 mg PO DAILY Rx Instructions: after second titration pack Discharge Orders: Discharge ED (Routine); Ordered 06/23/24 Ordered By: Daisha Avla Referrals: Denzel Peña, [facility] OF [facility] [Primary Care Provider] - Discharge Diet: Usual diet Discharge Activity: Increase activity as tolerated Patient Instructions: Abdominal Pain (ED), Opioid Safety, Pain Management Activity Restrictions/Additional Instructions: Thank you for choosing [facility] for your healthcare needs today. Please realize this is an emergency room and that we are providing you with a medical screening exam and this may not be complete and all inclusive of all the testing and or work up that you may need to determine your ailment or severity of your illness. You have been screened and evaluated and felt safe for discharge. Health conditions do change or evolve sometimes and as such it is important that you follow up with your Primary Doctor to be re checked, 3-5 days is a general good time frame for follow up. You are always welcome to return to the ED for re assessment if your symptoms are worsening or you have new concerns Print Language: Tamazight Coding Level of Care Code ED Paraplanner for Tam Langston
[2024-06-23 12:00] VITALS: O2SAT 96
[2024-06-23 12:18] LABS: Basophils # 0.1 10^3/uL (0.0-0.1); Basophils % 0.5 %; Eosinophils % 0.1 %; Hematocrit 44.6 % (36-47); Lymphocytes # 2.9 10^3/uL (0.8-4.8); Lymphocytes % 27.4 %; Mean Corpuscular HGB Conc 31.2 g/dL (30-55); Mean Corpuscular Hemoglobin 29.6 pg (27-33); Mean Corpuscular Volume 94.9 fl (85-98); Mean Platelet Volume 8.1 fL (7.4-10.4); Monocytes # 0.5 10^3/uL (0.2-0.9); Monocytes % 4.2 %; Neutrophils # 7.25 10^3/uL (1.8-7.7); Neutrophils % 67.4 %; Nucleated Red Blood Cells % 0 %; Platelet Count 164 10^3/cmm (157-399); Red Cell Distribution Width 13.2 % (12.1-15.1); White Blood Count 10.74 10^3/uL (3.29-11.43)
[2024-06-23 12:30] VITALS: O2SAT 92
[2024-06-23 12:30] LABS: Alanine Aminotransferase 20 U/L (0-33); Alkaline Phosphatase 105 U/L (35-105); Anion Gap 15.2 (5-19); Aspartate Amino Transferase 16 U/L (0-32); Blood Urea Nitrogen 14 mg/dL (6-20); Calcium 9.6 mg/dL (8.5-10.5); Carbon Dioxide 25 mmol/L (22-29); Chloride 107 mmol/L (98-107); Globulin 3.3 g/dL (1.3-4.6); Glomerular Filtration Rate 66.5 mL/min (90-130); Glucose 92 mg/dL (65-115); Lactic Sepsis W/Reflex 1.2 mmol/L (0.5-2.2); Lipase 43 U/L (13-60); Osmolality Calculated 296 mOsm/kg (285-295); Potassium 4.2 mmol/L (3.5-5.1); Sodium 143 mmol/L (136-145); Total Bilirubin 0.2 mg/dL (0.15-1.2); Total Protein 7.3 g/dL (6.6-8.7)
--- NOTE | 2024-06-23 12:35 | CT_ITS ---
WS: [id number] CT ABDOMEN AND PELVIS WITH CONTRAST HISTORY: Abdominal pain TECHNIQUE: Imaging performed of the abdomen and pelvis with IV contrast. Single phase imaging of the abdomen. Coronal and sagittal reformats are submitted. All CT scans at [facility] use at least one of these dose optimization techniques: automated exposure control; mA and/or kV adjustment per patient size (includes targeted exams where dose is matched to clinical indication); or iterative reconstruction. IV CONTRAST: Omnipaque 350; 100 mL IV. Oral contrast: No DLP: 1468.89 mGy.cm COMPARISON: 04/29/2014 Lower thorax: Lung bases are clear. Heart is normal size. No hiatal hernia. Liver/biliary system: Normal size with no intrahepatic dilatation. Gallbladder: Gallbladder is slightly contracted. Decreased attenuation in the gallbladder probably representing stones. These were not present in 2014. Normal common bile duct. Pancreas: Normal size pancreas and pancreatic duct. No adjacent inflammation. Spleen: Normal size spleen. No mass or infarct. Adrenal glands: Normal. Right kidney: Normal. Left kidney: Normal. Aorta: Normal. Lymphadenopathy: None. Free fluid: None. GI tract: Unremarkable. Normal appendix. No colitis or obstruction. Abdominal wall: Unremarkable abdominal wall. No hernia. Pelvis: Uterus is midline. Small follicle LEFT ovary. Bones: Unremarkable. CT/CT abdomen pelvis w con* [id number] IMPRESSION: 1. No acute abdominal or pelvic abnormalities. 2. Normal appendix. 3. No GI tract obstruction. 4. No renal obstruction. 5. Suspect cholelithiasis. No evidence for acute cholecystitis by CT. Follow-u p RIGHT upper quadrant ultrasound would add additional information concerning t he gallbladder.
[2024-06-23 12:50] LABS: Bilirubin Urine Negative (Negative); Blood Urine Negative (Negative); Glucose Urine UA Negative (Normal); Ketones Urine Negative (Negative); Leukocyte Esterase Urine Negative (Negative); Nitrate Urine Negative (Negative); Protein Urine Negative (Negative); Specific Gravity, Urine 1.017 (1.005-1.030); Urine Appearance Turbid (CLEAR); Urine Color Yellow (Yellow); Urobilinogen Urine 0.2 mg/dL (Negative); pH Urine 7.5 (5-7)
[2024-06-23 12:51] LABS: HCG Qualitative Urine. Negative (Negative)
[2024-06-23 12:57] LABS: Influenza A NEGATIVE (Negative); Influenza B NEGATIVE (Negative); Respiratory Syncytial Virus Ce NEGATIVE (Negative); SARS-CoV-2 PCR NEGATIVE (Negative)
[2024-06-23 13:12] LABS: Add Urine Culture? No; Amorphous Sediment Urine 2+ /hpf; Bacteria Urine TRACE /hpf
[2024-06-23] MEDS: iohexol 350 mg/mL 500 mL Btl (per mL) IV (13:16)
[2024-06-23 14:16] VITALS: BP 111/90; PULSE 80; O2SAT 99
== END 2024-06-23 14:17 | disposition home or self-care (01) ==
PROVIDERS: Emergency Provider Emergency Medicine; PCP Nurse Practitioner
DX: R10.9 Unspecified abdominal pain (principal); Z11.52 Encounter for screening for COVID-19; G40.909 Epilepsy, unspecified, not intractable, without status epilepticus; F84.0 Autistic disorder
CPT/HCPCS: 36415; 74177; 80053; 81001; 81025; 83605; 83690; 85025; 87040; 87637; 99285

== ENCOUNTER 2024-07-02 09:58 | Outpatient (CLI) | payer MEDICAID, SELFPAY ==
--- NOTE | 2024-07-02 10:00 | USCV_ITS ---
Bryan Salgado Age: 28 Gender: F : 1995 Exam Date: 07/02/2024 10:22 Ordering Phys: Jaida Galvan MD ([email or web address]) Technologist: Nixon Mason Exam Location: [facility] [place] Indication: tachycardia BP: 112 / 82 HR: 115 Rhythm: Sinus Technical Quality: Adequate MEASUREMENTS (Male / Female) Normal Values 2D ECHO LV Diastolic Diameter PLAX 3.3 cm 4.2 - 5.9 / 3.9 - 5.3 cm IVS Diastolic Thickness 1.1 cm 0.6 - 1.0 / 0.6 - 0.9 cm IVS Systolic Thickness 1.0 cm LVPW Diastolic Thickness 1.6 cm 0.6 - 1.0 / 0.6 - 0.9 cm LVPW Systolic Thickness 2.3 cm LVOT Diameter 2.1 cm LV Ejection Fraction 2D Teich 64.6 % LV Ejection Fraction MOD 4C 64.9 % LV Ejection Fraction MOD 2C 69.7 % LV Ejection Fraction 2C AL 69.3 % LA Diameter 3.1 cm RA Systolic Volume 4C AL 18.3 ml RA Systolic Volume 4C MOD 18.5 ml LA Sys Volume AL 26.7 cm cubed LA Sys Volume Index AL 11.3 cm cubed/m squared Aorta at Sinotubular Diameter 2.0 cm DOPPLER AV Peak Velocity 125.0 cm/s LVOT Peak Velocity 94.0 cm/s AV Area Cont Eq vti 2.9 cm squared AV Area Cont Eq pk 2.7 cm squared MV Peak Velocity 94.0 cm/s MV Area PHT 10.5 cm squared Mitral E to A Ratio 0.7 TV Peak Velocity 129.3 cm/s TR Peak Velocity 138.0 cm/s TR Peak Gradient 7.6 mmHg TR Mean Velocity 112.0 cm/s TR Mean Gradient 5.2 mmHg TR Velocity Time Integral 28.1 cm PV Peak Velocity 93.0 cm/s RV Ejection Time 0.2 s FINDINGS Left Ventricle Normal left ventricular size, systolic function and wall thickness, with no regional wall motion abnormalities. Left ventricular ejection fraction is estimated at 60 %. Grade I/IV diastolic dysfunction (abnormal relaxation filling pattern), normal to mildly elevated filling pressures. Right Ventricle The right ventricle is normal in size and function. Right Atrium The right atrium is normal in size. Left Atrium The left atrium is normal in size. Mitral Valve Structurally normal mitral valve without significant stenosis or prolapse. There is no mitral regurgitation. Aortic Valve Structurally normal aortic valve without significant sclerosis or stenosis. There is no aortic regurgitation. Tricuspid Valve Structurally normal tricuspid valve without significant stenosis or regurgitation. Pulmonary artery systolic pressure is normal. Pulmonic Valve Structurally normal pulmonic valve without significant stenosis. There is no pulmonic regurgitation. Pericardium Normal pericardium without effusion. Aorta Normal ascending aorta dimension. IVC The inferior vena cava appears normal. CONCLUSIONS Normal left ventricular size, systolic function and wall thickness, with no regional wall motion abnormalities. Left ventricular ejection fraction is estimated at 60 %. Grade I/IV diastolic dysfunction (abnormal relaxation filling pattern), normal to mildly elevated filling pressures. No significant chamber abnormalities. There is no pericardial effusion. Right atrial pressure is around 5 mm of mercury. Elly Davidson MD (Electronically Signed) Final Date: 09 July 2024 11:13 S
== END 2024-07-02 09:59 | disposition home or self-care (01) ==
PROVIDERS: PCP Nurse Practitioner; Visit Provider Internal Medicine Cardiovascular Disease
DX: R06.09 Other forms of dyspnea (principal); R93.1 Abnormal findings on diagnostic imaging of heart and coronary circulation
CPT/HCPCS: 93306

== ENCOUNTER → 2024-08-13 13:06 | Outpatient (BNVA) | payer MEDICAID, SELFPAY | PROVIDERS: PCP Nurse Practitioner Family; Visit Provider Specialist | DX: G24.4 Idiopathic orofacial dystonia (principal) | CPT/HCPCS: 64612; 99213; J0585; J9999 ==

== ENCOUNTER 2024-08-27 15:54 | Inpatient (IN) | payer MEDICAID, SELFPAY ==
[2024-08-27 16:02] VITALS: BP 132/93; PULSE 91; RESP 16; TEMP 36.7; O2SAT 98; BMI 49.5
--- NOTE | 2024-08-27 16:09 | XRR_ITS ---
PROCEDURE INFORMATION: Exam: XR Chest Exam date and time: 08/27/2024 5:05 PM Age: 28 years old Clinical indication: AMS; Epileptic PT; Lethargic; Won't eat or drink per parents; Less responsive than normal TECHNIQUE: Imaging protocol: Radiologic exam of the chest. Views: 1 view. COMPARISON: CT abdomen pelvis w con* [id number] 06/23/2024 1:12 PM FINDINGS: Lungs: Low lung volumes. No focal consolidation or evidence of pulmonary edema. Pleural spaces: Unremarkable. No pleural effusion. No pneumothorax. Heart/Mediastinum: Unremarkable. No cardiomegaly. Diaphragm: Asymmetric elevation of the right hemidiaphragm. Bones/joints: Unremarkable. XR/XR chest 1V portable [id number] IMPRESSION: Low lung volumes. No acute cardiopulmonary process.
[2024-08-27 16:12] VITALS: BP 116/98; PULSE 91; O2SAT 96
--- NOTE | 2024-08-27 16:12 | CTR_ITS ---
PROCEDURE INFORMATION: Exam: CTA Head With Contrast, Arteriography Exam date and time: 08/27/2024 4:54 PM Age: 28 years old Clinical indication: Weakness; HX of epilepsy TECHNIQUE: Imaging protocol: Computed tomographic angiography of the head with contrast. Exam focused on the arteries. 3D rendering (Not supervised by radiologist): MIP and/or 3D reconstructed images were created by the technologist. Radiation optimization: All CT scans at this facility use at least one of these dose optimization techniques: automated exposure control; mA and/or kV adjustment per patient size (includes targeted exams where dose is matched to clinical indication); or iterative reconstruction. Contrast material: OMNIPAQUE 350; Contrast volume: 100 ml; Contrast route: INTRAVENOUS (IV); COMPARISON: CR XR cervical spine 3V* [id number] 03/07/2022 11:43 AM RADIATION DOSE METRICS: Total DLP (mGy-cm): 1458.38 FINDINGS: Limitations: Portions of the head are nondiagnostic due to motion artifact on the arterial phase. A delayed phase was obtained which has less motion artifact but decreased opacification of the arteries. ANTERIOR CIRCULATION: Right internal carotid artery: Intracranial segment is patent with no significant stenosis. No aneurysm. Right middle cerebral artery: No occlusion or significant stenosis. No aneurysm. Right anterior cerebral artery: No occlusion or significant stenosis. No aneurysm. Left internal carotid artery: Intracranial segment is patent with no significant stenosis. No aneurysm. Left middle cerebral artery: No occlusion or significant stenosis. No aneurysm. Left anterior cerebral artery: No occlusion or significant stenosis. No aneurysm. POSTERIOR CIRCULATION: Right vertebral artery: No occlusion or significant stenosis. No aneurysm. Left vertebral artery: No occlusion or significant stenosis. No aneurysm. Basilar artery: No occlusion or significant stenosis. No aneurysm. Right posterior cerebral artery: No occlusion or significant stenosis. No aneurysm. Left posterior cerebral artery: No occlusion or significant stenosis. No aneurysm. Brain: No definite mass, mass effect, or midline shift. Cerebral ventricles: No ventriculomegaly. Bones/joints: Unremarkable. No acute fracture. Soft tissues: Unremarkable. PROCEDURE INFORMATION: Exam: CTA Neck With Contrast Exam date and time: 08/27/2024 4:54 PM Age: 28 years old Clinical indication: Weakness; HX of epilepsy TECHNIQUE: Imaging protocol: Computed tomographic angiography of the neck with contrast. Exam focused on the cervical segments of the vasculature. 3D rendering (Not supervised by radiologist): MIP and/or 3D reconstructed images were created by the technologist. Radiation optimization: All CT scans at this facility use at least one of these dose optimization techniques: automated exposure control; mA and/or kV adjustment per patient size (includes targeted exams where dose is matched to clinical indication); or iterative reconstruction. Contrast material: OMNIPAQUE 350; Contrast volume: 100 ml; Contrast route: INTRAVENOUS (IV); COMPARISON: CR XR cervical spine 3V* [id number] 03/07/2022 11:43 AM RADIATION DOSE METRICS: Total DLP (mGy-cm): 1458.38 FINDINGS: Right common carotid artery: No stenosis. No dissection or occlusion. Right internal carotid artery: No stenosis of the extracranial segment. No dissection or occlusion. Right external carotid artery: No occlusion or stenosis of the origin. Left common carotid artery: No stenosis. No dissection or occlusion. Left internal carotid artery: No stenosis of the extracranial segment. No dissection or occlusion. Left external carotid artery: No occlusion or stenosis of the origin. Right vertebral artery: No stenosis. No dissection or occlusion. Dominant right vertebral artery. Left vertebral artery: No stenosis. No dissection or occlusion. Pharynx: Multiple coarse calcifications partially visualized in the vicinity of the left palatine tonsils. Soft tissues: Normal. No significant soft tissue swelling. Bones/joints: No acute fracture. CT/CT angio headneck* [id number] IMPRESSION: 1. Study limitations as above. No definite large vessel stenosis or occlusion. 2. No acute intracranial findings. IMPRESSION: 1. No stenosis or occlusion. 2. Calcifications along the left palatine tonsils may be sequela of prior infection/inflammation or could represent tonsilloliths. REFERENCES: NASCET CRITERIA. The degree of stenosis in the cervical segment of the internal carotid artery is based on NASCET criteria. Normal is no stenosis. Mild is less than 50% stenosis. Moderate is 50-69% stenosis. Severe is 70% to 99% stenosis. Total occlusion is no detectable patent lumen.
--- NOTE | 2024-08-27 16:17 | W.ED.NEUROSD ---
HPI - Neuro Symptoms/Deficit General: Chief Complaint: Neuro Symptoms/Deficit Stated Complaint: cnnt walk, stand or sit up straight. Time Seen by Provider: 08/27/24 16:14 Source: family Mode of arrival: ambulatory History of Present Illness: 28-year-old female with history of autism along with seizure disorder family states that she has been having increased weakness this been going on for 2 to 3 days states that when she woke up this morning she has not been able to stand or walk on her own. They states she has not really eaten in the last 2 days. No recent injuries has not complained of any pain or fevers. They state that they started a new seizure medication last year and have been increasing the dose she is on Xcopri. Related Data Home Medications ?Medication ?Instructions ?Recorded ?Confirmed cenobamate 100 mg tablet (Xcopri) 100 mg PO DAILY 06/23/24 08/27/24 citalopram 40 mg tablet 40 mg PO DAILY 08/27/24 08/27/24 Previous Rx's ?Medication ?Instructions ?Recorded zonisamide 100 mg capsule See Rx Instructions .Route 02/17/24 .COMPLEX #180 caps clobazam 20 mg tablet (Onfi) See Rx Instructions PO .COMPLEX 08/13/24 #120 tabs lacosamide 200 mg tablet (Vimpat) 200 mg PO BID 90 days #180 tabs 08/18/24 jjlgvaxt-ijoqnrpdi-giwibztsp 3.5 4 drp otic (ear) QID 10 days #10 mL 08/18/24 mg/mL-10,000 unit/mL-1 % ear solution Allergies Allergy/AdvReac Type Severity Reaction Status Date / Time Penicillins Allergy rash Verified 08/18/24 14:45 Review of Systems General: Reports: ROS unobtainable due to mental status PFS ED PFSH: Medical History Hidradenitis suppurativa Autism Dental disease Epilepsy Bipolar 1 disorder, mixed Surgical History History of axillary surgery Left Hidradenitis suppurative [address] Sue only one tube 2014 Family History Father Congenital heart disease Grandfather Cancer Other Alcohol dependence Diabetes Social History Smoking and tobacco/nicotine status: never used tobacco/nicotine Second hand smoke exposure: No Alcohol intake: never Substance/Drug Use: never Adopted: No Caregiver/support person: No Lives independently: No Household members: family Housing: House Marital status: Single Number of children: 0 Highest education level completed: 3rd Grade service: No Current occupational status: disabled Current occupational exposures/hazards: No Pets and animals: Yes Pets & animals: cat(s) and dog(s) Do you think of yourself as: Straight/Heterosexual Current gender identity: Female Physical Exam Const: COMMON NORMALS: negative for patient oriented x3 HENMT: COMMON NORMALS: normocephalic and atraumatic HEAD & SCALP: normocephalic and atraumatic Eye: COMMON NORMALS: conjunctivae normal CONJUNCTIVA: Yes conjunctivae normal Neck/C-Spine: COMMON NORMALS: full ROM and supple Chest: COMMONS NORMALS: normal inspection of the chest Resp: COMMON NORMALS: normal respiratory effort, No retractions, No use of accessory muscles and clear to auscultation bilaterally AUSCULTATION: clear to auscultation bilaterally Cardio: COMMON NORMALS: regular rate, regular rhythm and No murmurs present (Cardio) RATE: regular rate RHYTHM: regular rhythm Extremity: COMMON NORMALS: normal to inspection and full ROM Neuro: COMMON NORMALS: negative for patient oriented x3 OTHER: unable to ambulate Psych: COMMON NORMALS: cooperative Skin: COMMON NORMALS: no rashes or lesions noted and no wounds GENERAL SKIN EXAM: no rashes or lesions noted Course Vital Signs: Vital signs: Vital Signs Temperature 98.0 F 08/27/24 16:02 Pulse Rate 91 08/27/24 16:02 Respiratory Rate 16 08/27/24 16:02 Blood Pressure 132/93 08/27/24 16:02 Pulse Oximetry 98 08/27/24 16:02 Oxygen Delivery Me thod Room Air 08/27/24 16:02 MDM - Neuro Symptoms/Deficit Medical Decision Making Patient presents for generalized weakness she has not been able to walk over the last 2 days with some dizziness as well this could be med related imaging blood work here is normal I spoke to neurology who was consulted and spoke to hospitalist who is admitting. Medical Records I reviewed the patient's medical records. Lab Data I reviewed the patient's lab results. 08/27/24 16:21 08/27/24 16:21 Radiology Impressions Chest X-Ray 08/27/24 16:09 IMPRESSION: Low lung volumes. No acute cardiopulmonary process. Head/Neck CTA 08/27/24 16:12 IMPRESSION: 1. Study limitations as above. No definite large vessel stenosis or occlusion. 2. No acute intracranial findings. IMPRESSION: 1. No stenosis or occlusion. 2. Calcifications along the left palatine tonsils may be sequela of prior infection/inflammation or could represent tonsilloliths. REFERENCES: NASCET CRITERIA. The degree of stenosis in the cervical segment of the internal carotid artery is based on NASCET criteria. Normal is no stenosis. Mild is less than 50% stenosis. Moderate is 50-69% stenosis. Severe is 70% to 99% stenosis. Total occlusion is no detectable patent lumen. Laboratory Results WBC 8.86 10^3/uL (3.29-11.43) 08/27/24 16:21 RBC 4.81 10^6/uL (3.85-5.65) 08/27/24 16:21 Hgb 14.40 g/dL (11.27-16.99) 08/27/24 16:21 Hct 46.8 % (36-47) 08/27/24 16:21 MCV 97.3 fl (85-98) 08/27/24 16:21 MCH 29.9 pg (27-33) 08/27/24 16:21 MCHC 30.8 g/dL (30-55) 08/27/24 16:21 RDW 12.9 % (12.1-15.1) 08/27/24 16:21 Plt Count 138 10^3/cmm (157-399) L 08/27/24 16:21 MPV 8.5 fL (7.4-10.4) 08/27/24 16:21 Neut % (Auto) 62.2 % 08/27/24 16:21 Lymph % (Auto) 30.6 % 08/27/24 16:21 [place] % (Auto) 6.3 % 08/27/24 16:21 Eos % (Auto) 0.0 % 08/27/24 16:21 Baso % (Auto) 0.6 % 08/27/24 16:21 Neut # (Auto) 5.51 10^3/uL (1.8-7.7) 08/27/24 16:21 Lymph # (Auto) 2.7 10^3/uL (0.8-4.8) 08/27/24 16:21 [place] # (Auto) 0.6 10^3/uL (0.2-0.9) 08/27/24 16:21 Eos # (Auto) 0.0 10^3/uL (0.0-0.8) 08/27/24 16:21 Baso # (Auto) 0.1 10^3/uL (0.0-0.1) 08/27/24 16:21 Nucleated RBC % (auto) 0 % 08/27/24 16:21 Nucleated RBCs # 0.0 /100WBC 08/27/24 16:21 Sodium 142 mmol/L (136-145) 08/27/24 16:21 Potassium 3.8 mmol/L (3.5-5.1) 08/27/24 16:21 Chloride 108 mmol/L (98-107) H 08/27/24 16:21 Carbon Dioxide 21 mmol/L (22-29) L 08/27/24 16:21 Anion Gap 16.8 (5-19) 08/27/24 16:21 BUN 12 mg/dL (6-20) 08/27/24 16:21 Creatinine 0.8 mg/dL (0.5-0.9) 08/27/24 16:21 GFR Calculation 86.0 mL/min (90-130) L 08/27/24 16:21 Glucose 91 mg/dL (65-115) 08/27/24 16:21 Calculated Osmolality 293 mOsm/kg (285-295) 08/27/24 16:21 Calcium 9.5 mg/dL (8.5-10.5) 08/27/24 16:21 Magnesium 1.9 mg/dL (1.7-2.3) 08/27/24 16:21 Total Bilirubin 0.3 mg/dL (0.15-1.2) 08/27/24 16:21 AST 25 U/L (0-32) 08/27/24 16:21 ALT 19 U/L (0-33) 08/27/24 16:21 Alkaline Phosphatase 98 U/L (35-105) 08/27/24 16:21 Ammonia 45 umol/L (11-51) 08/27/24 16:21 Total Protein 7.4 g/dL (6.6-8.7) 08/27/24 16:21 Albumin 4.1 g/dL (3.5-5.2) 08/27/24 16:21 Globulin 3.3 g/dL (1.3-4.6) 08/27/24 16:21 Lipase 29 U/L (13-60) 08/27/24 16:21 TSH 3.68 uIU/mL (0.27-4.20) 08/27/24 16:21 HCG, Qual Negative (Negative) 08/27/24 16:21 Urine Color Dark yellow (Yellow) A 08/27/24 17:42 Urine Appearance Clear (CLEAR) 08/27/24 17:42 Urine pH 7.0 (5-7) 08/27/24 17:42 Ur Specific [place] 1.043 (1.005-1.030) H 08/27/24 17:42 Urine Protein 1+ (Negative) A 08/27/24 17:42 Urine Glucose (UA) Negative (Normal) 08/27/24 17:42 Urine Ketones Trace (Negative) 08/27/24 17:42 Urine Blood Negative (Negative) 08/27/24 17:42 Urine Nitrate Negative (Negative) 08/27/24 17:42 Urine Bilirubin 1+ (Negative) H 08/27/24 17:42 Urine Urobilinogen 1.0 mg/dL (Negative) 08/27/24 17:42 Ur Leukocyte Esterase Trace (Negative) A 08/27/24 17:42 Urine RBC 3-5 /hpf (0-2) 08/27/24 17:42 Urine WBC 11-20 /hpf (0-5) H 08/27/24 17:42 Ur Squamous Epith Cells 6-10 /hpf (0-5) 08/27/24 17:42 Amorphous Sediment Not Reportable 08/27/24 17:42 Urine Bacteria Trace /hpf (NONE) 08/27/24 17:42 Hyaline Casts 2.87 /lpf 08/27/24 17:42 All radiology interpretation(s) finalized by discharge EKG Data EKG 1: I personally reviewed and interpreted this EKG as follows: EKG interpretation date: 08/27/24 EKG interpretation time: 17:22 Interpretation: nsr hr [address] elevation qrs 99 qtc 425 Discharge Plan Discharge Patient Disposition: Admitted As Inpatient Clinical Impression: Seizure disorder, Generalized weakness Condition: Stable Coding Level of Care Code ED Creative Consultant for Tam Langston
[2024-08-27] MEDS: sodium chloride 0.9% 1,000 ML 999 ML IV (16:35)
[2024-08-27 16:39] LABS: HCG, Serum Qual Negative (Negative)
[2024-08-27 16:40] LABS: Basophils # 0.1 10^3/uL (0.0-0.1); Basophils % 0.6 %; Hematocrit 46.8 % (36-47); Lymphocytes # 2.7 10^3/uL (0.8-4.8); Lymphocytes % 30.6 %; Mean Corpuscular HGB Conc 30.8 g/dL (30-55); Mean Corpuscular Hemoglobin 29.9 pg (27-33); Mean Corpuscular Volume 97.3 fl (85-98); Mean Platelet Volume 8.5 fL (7.4-10.4); Monocytes # 0.6 10^3/uL (0.2-0.9); Monocytes % 6.3 %; Neutrophils # 5.51 10^3/uL (1.8-7.7); Neutrophils % 62.2 %; Nucleated Red Blood Cells % 0 %; Platelet Count 138 10^3/cmm (157-399); Red Blood Count 4.81 10^6/uL (3.85-5.65); Red Cell Distribution Width 12.9 % (12.1-15.1); White Blood Count 8.86 10^3/uL (3.29-11.43)
[2024-08-27 16:52] LABS: Ammonia 45 umol/L (11-51)
[2024-08-27 16:56] LABS: Alanine Aminotransferase 19 U/L (0-33); Albumin Level 4.1 g/dL (3.5-5.2); Alkaline Phosphatase 98 U/L (35-105); Anion Gap 16.8 (5-19); Aspartate Amino Transferase 25 U/L (0-32); Blood Urea Nitrogen 12 mg/dL (6-20); Calcium 9.5 mg/dL (8.5-10.5); Carbon Dioxide 21 mmol/L (22-29); Chloride 108 mmol/L (98-107); Creatinine Clr Calc Pharmacy 127.0935; Globulin 3.3 g/dL (1.3-4.6); Glucose 91 mg/dL (65-115); Lipase 29 U/L (13-60); Magnesium 1.9 mg/dL (1.7-2.3); Osmolality Calculated 293 mOsm/kg (285-295); Potassium 3.8 mmol/L (3.5-5.1); Sodium 142 mmol/L (136-145); Thyroid Stimulating Hormone 3.68 uIU/mL (0.27-4.20); Total Bilirubin 0.3 mg/dL (0.15-1.2); Total Protein 7.4 g/dL (6.6-8.7)
[2024-08-27] MEDS: iohexol 350 mg/mL 500 mL Btl (per mL) IV (16:58)
[2024-08-27 17:08] VITALS: BP 130/93; PULSE 86; O2SAT 97
--- NOTE | 2024-08-27 17:22 | ECG_ITS ---
[email or web address] Test Date: 2024-08-27 Pat Name: Bryan Salgado Department: Room: Gender: Female Survey Operations Director: : 1995 Requested By: Heriberto Love Order Number: [id number] Reading MD: MARINA ROME Measurements Intervals [place] Rate: 80 P: 75 CT: 172 QRS: -11 QRSD: 99 T: 24 QT: 390 QTc: 450 Interpretive Statements SINUS RHYTHM INCOMPLETE RIGHT BUNDLE BRANCH BLOCK [90+ ms QRS DURATION, TERMINAL R IN V1/V2, 40+ ms S IN I/aVL/V4/V5/V6] NONSPECIFIC ST & T-WAVE ABNORMALITY Compared to ECG 03/16/2024 09:25:57 T-wave abnormality now present Sinus tachycardia no longer present Left anterior fascicular block no longer present Myocardial infarct finding no longer present Electronically Signed On 08-28-2024 16:19:55 CDT by MARINA ROME [email or web address]
[2024-08-27 18:00] LABS: Bilirubin Urine 1+ (Negative); Blood Urine Negative (Negative); Glucose Urine UA Negative (Normal); Ketones Urine Trace (Negative); Leukocyte Esterase Urine Trace (Negative); Nitrate Urine Negative (Negative); Protein Urine 1+ (Negative); Urine Appearance Clear (CLEAR); Urine Color Dark Yellow (Yellow)
[2024-08-27 18:05] LABS: Add Urine Microscopic? YES; Bacteria Urine Trace /hpf; Hyaline Casts Urine 2.87 /lpf; Specific Gravity, Urine 1.043 (1.005-1.030)
[2024-08-27 18:08] VITALS: BP 160/115; PULSE 86; O2SAT 95
[2024-08-27 18:30] VITALS: BP 157/117; PULSE 81; O2SAT 94
--- NOTE | 2024-08-27 18:32 | PM.HP ---
Providers/Chief Complaint Primary Care Provider: OSIEL Manning Chief Complaint: cnnt walk, stand or sit up straight. History of Present Illness Ms Bryan Salgado is a 28 year old female 28-year-old female with past medical history of autism , seizure disorder who presents for further evaluation of worsening generalized weakness ongoing for the past 2 to 3 days . Per family members, patient unable to stand or walk on her own since this morning . She also has reduced p.o. intake . There were no reports of fever, chills, chest pain, shortness of breath, cough, abdominal pain, nausea, vomiting, episodes of seizures or any other symptoms. Patient's mom feels that xcopri may be the cause of her generalized weakness. She reports that the dose was increased about a month ago. . In the ER, CT head, CTA head showed no acute process. Her labs are mostly unremarkable. UA suggestive of UTI. Review of Systems General: Reports: ROS unobtainable due to mental status Medications/Allergies Home Medications ?Medication ?Instructions ?Recorded ?Confirmed ?Last Taken ?Type cenobamate 100 mg tablet (Xcopri) 100 mg PO BEDTIME 06/23/24 08/27/24 08/27/24 20:00 History clobazam 20 mg tablet (Onfi) See Rx Instructions PO .COMPLEX 08/13/24 08/27/24 08/27/24 08:00 Rx #120 tabs lacosamide 200 mg tablet (Vimpat) 200 mg PO BID 90 days #180 tabs 08/18/24 08/27/24 08/27/24 21:00 Rx avuhvxye-gaxsfxmum-sxnqvyofn 3.5 4 drp otic (ear) QID 10 days #10 mL 08/18/24 08/27/24 08/27/24 08:00 Rx mg/mL-10,000 unit/mL-1 % ear solution citalopram 40 mg tablet 40 mg PO BEDTIME 08/27/24 08/27/24 08/26/24 20:00 History onabotulinumtoxinA 100 unit 300 unit IM Q90D 08/27/24 08/27/24 08/13/24 History solution for injection (Botox) zonisamide 100 mg capsule 500 mg PO BEDTIME 08/27/24 08/27/24 08/27/24 21:00 History cefdinir 300 mg capsule 300 mg PO BID 5 days #10 caps 08/28/24 Unknown Rx Allergies Allergy/AdvReac Type Severity Reaction Status Date / Time Penicillins Allergy rash Verified 08/18/24 14:45 PFSH Acute PFSH: Medical History Hidradenitis suppurativa Autism Dental disease Epilepsy Bipolar 1 disorder, mixed Surgical History History of axillary surgery Left Hidradenitis suppurative [address] Sue only one tube 2014 Family History Father Congenital heart disease Grandfather Cancer Other Alcohol dependence Diabetes Social History Smoking and tobacco/nicotine status: never used tobacco/nicotine Second hand smoke exposure: No Alcohol intake: never Substance/Drug Use: never Adopted: No Caregiver/support person: No Lives independently: No Household members: family Housing: House Marital status: Single Number of children: 0 Highest education level completed: 3rd Grade service: No Current occupational status: disabled Current occupational exposures/hazards: No Pets and animals: Yes Pets & animals: cat(s) and dog(s) Do you think of yourself as: Straight/Heterosexual Current gender identity: Female Vitals/I&O/Wt Last Vital Signs Temp 98.0 F 08/27/24 16:02 Pulse 91 08/27/24 16:02 Resp 16 08/27/24 16:02 BP 132/93 08/27/24 16:02 Pulse Ox 98 08/27/24 16:02 O2 Del Method Room Air 08/27/24 16:02 08/27/24 08/27/24 08/27/24 06:59 14:59 22:59 Intake Total 0 / 0 Balance 0 / 0 Weight last 48 hrs Weight 118.841 kg Physical Exam Narrative: General : lethargic, acutely ill-appearing HEENT : Normocephalic , atraumatic, PERRL Lungs : Clear to auscultation bilaterally, no wheezes or crackles CV: S1, S2, regular rate and rating Abdomen : Soft, nontender, bowel sounds present Extremities : No pedal edema Neuro : Generalized weakness, no gross focal deficits Data 08/28/24 05:17 08/28/24 05:17 A&P Assessment and plan (1) Generalized weakness: (2) Seizure disorder: (3) Developmental disorder of speech and language, unspecified: Plan # Generalized weakness # Lower extremity weakness -Patient presents for generalized weakness, inability to walk or stand of unclear etiology -CT head, CTA head and neck did not reveal any acute process -Patient has a history of seizure disorder, no history of episodes of seizures. Patient's mother is concerned about her seizure medication - xcopri and feels that this might be the reason for her generalized weakness -No reported back pain -Neurology consulted - PT OT evaluation # Suspected UTI - Will start ceftriaxone - Follow cultures # History of seizure disorder - Resume antiseizure medications -Patient's family may need to bring patient's home medications, seems some of the medications are not on formulary - Patient's mother is fine with patient's resuming xcopri for now until evaluation by neurology - Seizure precautions # History of autism, developmental disorder - Stable PDMP PDMP Reviewed: Not Reviewed Attestations Medical Necessity Statement*: Patient admitted to inpatient status as her care is expected to cross greater than 2 midnights Coding Level of Care Code Acute Code for Chg Fwd Diagnoses Generalized weakness R53.1 Seizure disorder G40.909 Developmental disorder of speech and language, unspecified F80.9
[2024-08-27 20:02] VITALS: BP 105/59; PULSE 72; RESP 18; TEMP 36.4; O2SAT 94
[2024-08-27 20:57] VITALS: BMI 44.8
[2024-08-27] MEDS: zonisamide 100 MG Capsule 500 MG PO (21:35)
[2024-08-27] MEDS: cefTRIAXone 1,000 mg SDV 1000 MG IVP (21:36)
[2024-08-28] VITALS: BP 104/64; PULSE 90; RESP 20; TEMP 36.4; O2SAT 90
[2024-08-28 04:00] VITALS: BP 94/67; PULSE 83; RESP 19; TEMP 36.4; O2SAT 91
[2024-08-28 05:43] LABS: Basophils % 0.3 %; Eosinophils # 0.1 10^3/uL (0.0-0.8); Eosinophils % 2.1 %; Hematocrit 43.9 % (36-47); Lymphocytes # 1.5 10^3/uL (0.8-4.8); Lymphocytes % 24.6 %; Mean Corpuscular HGB Conc 30.1 g/dL (30-55); Mean Corpuscular Hemoglobin 30.1 pg (27-33); Mean Platelet Volume 8.7 fL (7.4-10.4); Monocytes # 0.3 10^3/uL (0.2-0.9); Monocytes % 5.4 %; Neutrophils # 4.21 10^3/uL (1.8-7.7); Neutrophils % 67.3 %; Nucleated Red Blood Cells % 0 %; Platelet Count 129 10^3/cmm (157-399); Red Blood Count 4.39 10^6/uL (3.85-5.65); Red Cell Distribution Width 13.2 % (12.1-15.1); White Blood Count 6.26 10^3/uL (3.29-11.43)
[2024-08-28 06:04] LABS: Anion Gap 17.7 (5-19); Blood Urea Nitrogen 10 mg/dL (6-20); Calcium 8.6 mg/dL (8.5-10.5); Carbon Dioxide 20 mmol/L (22-29); Chloride 112 mmol/L (98-107); Creatinine Clr Calc Pharmacy 160.6241; Glomerular Filtration Rate 119.9 mL/min (90-130); Glucose 75 mg/dL (65-115); Osmolality Calculated 300 mOsm/kg (285-295); Potassium 3.7 mmol/L (3.5-5.1); Sodium 146 mmol/L (136-145)
[2024-08-28 08:00] VITALS: BP 99/61; PULSE 88; RESP 16; TEMP 36.4; O2SAT 97
[2024-08-28] MEDS: lacosamide 50 mg Tablet 200 MG PO (10:06)
[2024-08-28] MEDS: zonisamide 100 MG Capsule 500 MG PO (10:07)
[2024-08-28] MEDS: dextrose 5%-sod chloride 0.45% 1,000 ML 75 ML IV (10:32)
--- NOTE | 2024-08-28 10:38 | PM.CONSULT ---
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 Patient followed by Dr. Morejon. The patient was brought to the [facility] emergency department on 08/27/2024 secondary to family stating the patient has been unable to walk. CT angiogram of the head and neck 08/27/2024 revealed no acute findings. Lab for CBC and comprehensive metabolic panel, TSH and ammonia levels were unrevealing. EKG 08/27/2020 reveals normal sinus rhythm with incomplete right bundle branch block which will be addressed by cardiology. The patient's decreased platelet count was decreased of 129,000 on 06/28/2024. Platelet count was reported to be 138,000 on 08/27/2024. Platelet count on 06/23/2024 was normal at 165,000. The patient was discovered to have prior to a urinary tract infection and after starting IV antibiotics the patient was able to ambulate. According to the mother the patient has ambulated in the room without any issues since starting IV antibiotics. The family did want to talk about the possibility of further tapering of some of the patient's anticonvulsant medications. Therefore the patient's family was instructed to have the patient follow-up with Dr. Morejon to discuss any concerns regarding patient's current anticonvulsant drug regiment. Drug allergies: Penicillin which resulted in a rash Current medications: Xcopri 100 mg p.o. daily Onfi 20 mg p.o. every morning and 60 mg p.o. nightly Lacosamide 200 mg p.o. twice daily Zonegran 500 mg p.o. nightly Botox injections for orofacial dystonia every 3-months Celexa 40 mg p.o. 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 Orofacial dystonia (Meige syndrome) Dental disease Past medications: Keppra which resulted in agitation Dilantin Habits: None Family history: Father with congenital heart disease Grandfather with cancer Review of Systems General: Reports: 10 or more systems reviewed and unremarkable except in HPI and below Medications/Allergies Home Medications ?Medication ?Instructions ?Recorded ?Confirmed ?Last Taken ?Type cenobamate 100 mg tablet (Xcopri) 100 mg PO BEDTIME 06/23/24 08/27/24 08/27/24 20:00 History clobazam 20 mg tablet (Onfi) See Rx Instructions PO .COMPLEX 08/13/24 08/27/24 08/27/24 08:00 Rx #120 tabs lacosamide 200 mg tablet (Vimpat) 200 mg PO BID 90 days #180 tabs 08/18/24 08/27/24 08/27/24 21:00 Rx gyyqefqc-ucccmachc-hlzdzzaiu 3.5 4 drp otic (ear) QID 10 days #10 mL 08/18/24 08/27/24 08/27/24 08:00 Rx mg/mL-10,000 unit/mL-1 % ear solution citalopram 40 mg tablet 40 mg PO BEDTIME 08/27/24 08/27/24 08/26/24 20:00 History onabotulinumtoxinA 100 unit 300 unit IM Q90D 08/27/24 08/27/24 08/13/24 History solution for injection (Botox) zonisamide 100 mg capsule 500 mg PO BEDTIME 08/27/24 08/27/24 08/27/24 21:00 History Allergies Allergy/AdvReac Type Severity Reaction Status Date / Time Penicillins Allergy rash Verified 08/18/24 14:45 Current Medications Generic Name Dose Route Start Last Admin Trade Name Juvencioq PRN Reason Stop Dose Admin Ceftriaxone Sodium 1,000 mg 08/27/24 21:00 08/27/24 21:36 Ceftriaxone 1,000 Mg Sdv IVP 1,000 mg Q24H LYNDA Administration Protocol Enoxaparin Sodium 40 mg 08/27/24 21:00 08/27/24 21:36 Enoxaparin 40 Mg/0.4 Ml Syringe SUBCUT Not Given Q24H LYNDA Dextrose/Sodium Chloride 1,000 mls @ 75 mls/hr 08/28/24 08:15 08/28/24 10:32 Dextrose 5%-Sod Chloride 0.45% IV 75 mls/hr .[id number] LYNDA Administration Lacosamide 200 mg 08/28/24 09:00 08/28/24 10:06 Lacosamide 50 Mg Tablet PO 200 mg BID LYNDA Administration Neomycin/Polymyxin/Hydrocortisone 4 drop 08/27/24 21:00 08/28/24 09:29 Uwpmgpww-Tdav-Qxzqhhgtz Otic Susp 10 Ml Btl EAR-BOTH Not Given QID LYNDA Zonisamide 500 mg 08/27/24 20:02 08/28/24 10:07 Zonisamide 100 Mg Capsule PO 500 mg DAILY LYNDA Administration PFSH Acute PFSH: Medical History Hidradenitis suppurativa Autism Dental disease Epilepsy Bipolar 1 disorder, mixed Surgical History History of axillary surgery Left Hidradenitis suppurative [address] Sue only one tube 2014 Family History Father Congenital heart disease Grandfather Cancer Other Alcohol dependence Diabetes Social History Smoking and tobacco/nicotine status: never used tobacco/nicotine Second hand smoke exposure: No Alcohol intake: never Substance/Drug Use: never Adopted: No Caregiver/support person: No Lives independently: No Household members: family Housing: House Marital status: Single Number of children: 0 Highest education level completed: 3rd Grade service: No Current occupational status: disabled Current occupational exposures/hazards: No Pets and animals: Yes Pets & animals: cat(s) and dog(s) Do you think of yourself as: Straight/Heterosexual Current gender identity: Female Vitals/I&O/Wt Last Vital Signs Temp 97.5 F L 08/28/24 08:00 Pulse 88 08/28/24 08:00 Resp 16 08/28/24 08:00 BP 99/61 08/28/24 08:00 Pulse Ox 97 08/28/24 08:00 O2 Del Method Room Air 08/28/24 08:00 08/27/24 08/28/24 08/28/24 22:59 06:59 14:59 Intake Total 1000 / 1000 240 / 240 Balance 1000 / 1000 240 / 240 Weight last 48 hrs Weight 240 lb 1.6 oz Weight 237 lb 1.6 oz Weight 262 lb Physical Exam Narrative: The patient is alert and in no apparent distress. Patient does display intellectual developmental delay. Patient is not fully cooperative. According to the patient's family the patient is back to baseline prior to admission. Head atraumatic. Neck supple. Cranial nerves II through XII difficult to assess secondary to lack of complete cooperation. Motor testing grossly nonfocal. Sensory examination intact to touch. Throat clear. Lungs clear. Heart regular rhythm and rate. Extremities were negative for cyanosis. Gait: The family stated patient has been ambulating back to her baseline this morning following treatment of urinary tract infection. Data 08/28/24 05:17 08/28/24 05:17 A&P Assessment and plan (1) Difficulty walking: Impression: 1. Difficulty walking improved with treatment of urinary tract infection 2. 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 Orofacial dystonia 4. Autism 5. Urinary tract infection 6. Thrombocytopenia possibly related to urinary tract infection Plan: 1. Since patient has stable and ambulating, patient is stable from neurological standpoint to start discharge planning 2. Please schedule patient for follow-up with Dr. Morejon with regards to epilepsy and orofacial dystonia and families regarding any anticonvulsant medication adjustments 3. Recommend monitoring platelet count (thrombocytopenia) and repeat within the next week 4. Continue seizure and fall precautions 5. Agree with cardiac evaluation for abnormal EKG reporting incomplete right bundle branch block 6. 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
--- NOTE | 2024-08-28 14:55 | PM.DCS ---
Discharge Providers Date of Admission: 08/27/24 18:08 Date of Discharge: August 28, 2024 Attending Provider at Admission: Mike Raymond MD Attending Provider at Discharge: Mike Raymond MD Primary Care Provider: OSIEL Manning Diagnoses at Discharge Discharge Diagnosis (1) Difficulty walking: Status: Acute (2) Partial epilepsy secondarily generalized: Status: Acute (3) Dystonia: Status: Acute (4) Meige syndrome (blepharospasm with oromandibular dystonia): Status: Acute (5) Generalized epilepsy: Status: Acute Reason for Visit Reason for Visit: cnnt walk, stand or sit up straight. Hospital Course Hospital Course #Generalized weakness #Lower extremity weakness #Suspected UTI #History of seizure disorder #History of autism, developmental disorder In summary, Ms Bryan Salgado is a 28 year old female with past medical history of autism , seizure disorder who presented for further evaluation of worsening generalized weakness ongoing for the past 2 to 3 days . Per family members, patient unable to stand or walk on her own . She also has reduced p.o. intake Patient's mom feels that xcopri may be the cause of her generalized weakness. She reports that the dose was increased about a month ago. . In the ER, CT head, CTA head showed no acute process. Her labs are mostly unremarkable. UA suggestive of UTI. She was admitted for further evaluation and management. Etiology of generalized weakness was not very clear. Patient also suspected to have a UTI and received IV ceftriaxone. She had improvement in her symptoms. She was evaluated by neurology and no changes were made to her medications. At time of discharge, patient was able to ambulate and she was back to her baseline mental status. Final urine cultures are pending at time of discharge. Patient was discharged on cefdinir and she will follow with her PCP and neurologist outpatient. Physical Exam Narrative: General : Awake, no acute distress HEENT : Normocephalic , atraumatic, PERRL Lungs : Clear to auscultation bilaterally, no wheezes or crackles CV: S1, S2, regular rate and rhythm Abdomen : Soft, nontender, bowel sounds present Extremities : No pedal edema Neuro : No gross focal deficits Discharge Data Studies Completed and Pending Completed Studies During Hospitalization Category Date Time Status CTA head neck [CT angio headneck* [id number]] Stat Cat Scan 08/27/24 16:12 Completed XR chest 1V portable [id number] Stat Exams 08/27/24 16:09 Completed Pending at discharge Category Date Time Status Basic Metabolic Panel AM LABS Lab 08/29/24 04:00 Ordered Basic Metabolic Panel AM LABS Lab 08/30/24 04:00 Ordered Urine Culture Routine Lab 08/28/24 13:58 Ordered Radiology Impressions Chest X-Ray 08/27/24 16:09 IMPRESSION: Low lung volumes. No acute cardiopulmonary process. Head/Neck CTA 08/27/24 16:12 IMPRESSION: 1. Study limitations as above. No definite large vessel stenosis or occlusion. 2. No acute intracranial findings. IMPRESSION: 1. No stenosis or occlusion. 2. Calcifications along the left palatine tonsils may be sequela of prior infection/inflammation or could represent tonsilloliths. REFERENCES: NASCET CRITERIA. The degree of stenosis in the cervical segment of the internal carotid artery is based on NASCET criteria. Normal is no stenosis. Mild is less than 50% stenosis. Moderate is 50-69% stenosis. Severe is 70% to 99% stenosis. Total occlusion is no detectable patent lumen. Laboratory Results WBC 6.26 10^3/uL (3.29-11.43) 08/28/24 05:17 Corrected WBC Cancelled 08/28/24 03:49 RBC 4.39 10^6/uL (3.85-5.65) 08/28/24 05:17 Hgb 13.20 g/dL (11.27-16.99) 08/28/24 05:17 Hct 43.9 % (36-47) 08/28/24 05:17 MCV 100.0 fl (85-98) H 08/28/24 05:17 MCH 30.1 pg (27-33) 08/28/24 05:17 MCHC 30.1 g/dL (30-55) 08/28/24 05:17 RDW 13.2 % (12.1-15.1) 08/28/24 05:17 Plt Count 129 10^3/cmm (157-399) L 08/28/24 05:17 MPV 8.7 fL (7.4-10.4) 08/28/24 05:17 Gran % Cancelled 08/28/24 03:49 Neut % (Auto) 67.3 % 08/28/24 05:17 Lymph % (Auto) 24.6 % 08/28/24 05:17 [place] % (Auto) 5.4 % 08/28/24 05:17 Eos % (Auto) 2.1 % 08/28/24 05:17 Baso % (Auto) 0.3 % 08/28/24 05:17 Neut # (Auto) 4.21 10^3/uL (1.8-7.7) 08/28/24 05:17 Lymph # (Auto) 1.5 10^3/uL (0.8-4.8) 08/28/24 05:17 [place] # (Auto) 0.3 10^3/uL (0.2-0.9) 08/28/24 05:17 Eos # (Auto) 0.1 10^3/uL (0.0-0.8) 08/28/24 05:17 Baso # (Auto) 0.0 10^3/uL (0.0-0.1) 08/28/24 05:17 Absolute Gran (auto) Cancelled 08/28/24 03:49 Nucleated RBC % (auto) 0 % 08/28/24 05:17 Nucleated RBCs # 0.0 /100WBC 08/28/24 05:17 Sodium 146 mmol/L (136-145) H 08/28/24 05:17 Potassium 3.7 mmol/L (3.5-5.1) 08/28/24 05:17 Chloride 112 mmol/L (98-107) H 08/28/24 05:17 Carbon Dioxide 20 mmol/L (22-29) L 08/28/24 05:17 Anion Gap 17.7 (5-19) 08/28/24 05:17 BUN 10 mg/dL (6-20) 08/28/24 05:17 Creatinine 0.6 mg/dL (0.5-0.9) 08/28/24 05:17 GFR Calculation 119.9 mL/min (90-130) 08/28/24 05:17 Glucose 75 mg/dL (65-115) 08/28/24 05:17 Calculated Osmolality 300 mOsm/kg (285-295) H 08/28/24 05:17 Calcium 8.6 mg/dL (8.5-10.5) 08/28/24 05:17 Magnesium 1.9 mg/dL (1.7-2.3) 08/27/24 16:21 Total Bilirubin 0.3 mg/dL (0.15-1.2) 08/27/24 16:21 AST 25 U/L (0-32) 08/27/24 16:21 ALT 19 U/L (0-33) 08/27/24 16:21 Alkaline Phosphatase 98 U/L (35-105) 08/27/24 16:21 Ammonia 45 umol/L (11-51) 08/27/24 16:21 Total Protein 7.4 g/dL (6.6-8.7) 08/27/24 16:21 Albumin 4.1 g/dL (3.5-5.2) 08/27/24 16:21 Globulin 3.3 g/dL (1.3-4.6) 08/27/24 16:21 Lipase 29 U/L (13-60) 08/27/24 16:21 TSH 3.68 uIU/mL (0.27-4.20) 08/27/24 16:21 HCG, Qual Negative (Negative) 08/27/24 16:21 Urine Color Dark yellow (Yellow) A 08/27/24 17:42 Urine Appearance Clear (CLEAR) 08/27/24 17:42 Urine pH 7.0 (5-7) 08/27/24 17:42 Ur Specific [place] 1.043 (1.005-1.030) H 08/27/24 17:42 Urine Protein 1+ (Negative) A 08/27/24 17:42 Urine Glucose (UA) Negative (Normal) 08/27/24 17:42 Urine Ketones Trace (Negative) 08/27/24 17:42 Urine Blood Negative (Negative) 08/27/24 17:42 Urine Nitrate Negative (Negative) 08/27/24 17:42 Urine Bilirubin 1+ (Negative) H 08/27/24 17:42 Urine Urobilinogen 1.0 mg/dL (Negative) 08/27/24 17:42 Ur Leukocyte Esterase Trace (Negative) A 08/27/24 17:42 Urine RBC 3-5 /hpf (0-2) 08/27/24 17:42 Urine WBC 11-20 /hpf (0-5) H 08/27/24 17:42 Ur Squamous Epith Cells 6-10 /hpf (0-5) 08/27/24 17:42 Amorphous Sediment Not Reportable 08/27/24 17:42 Urine Bacteria Trace /hpf (NONE) 08/27/24 17:42 Hyaline Casts 2.87 /lpf 08/27/24 17:42 Vitals Last Vital Signs Temp 97.5 F L 08/28/24 08:00 Pulse 88 08/28/24 08:00 Resp 16 08/28/24 08:00 BP 99/61 08/28/24 08:00 Pulse Ox 97 08/28/24 08:00 O2 Del Method Room Air 08/28/24 08:00 Discharge Plan Discharge Patient Disposition: Home Condition: Stable Prescriptions: New cefdinir 300 mg capsule 300 mg PO BID 5 Days Qty: 10 0RF Continued clobazam [Onfi] 20 mg tablet See Rx Instructions PO .COMPLEX Qty: 120 5RF Rx Instructions: 60mg HS and 20mg in the AM [id number] 3.5-10,000-1 mg/mL-unit/mL-% solution 4 drp otic (ear) QID 10 Days Qty: 10 0RF Rx Instructions: both ears lacosamide [Vimpat] 200 mg tablet 200 mg PO BID 90 Days Qty: 180 3RF Xcopri 100 mg tablet 100 mg PO BEDTIME citalopram 40 mg tablet 40 mg PO BEDTIME Rx Instructions: TAKE ONE TABLET BY MOUTH DAILY Botox 100 unit Recon Soln 300 unit IM Q90D zonisamide 100 mg Capsule 500 mg PO BEDTIME Discharge Orders: Discharge Order (Routine); Ordered 08/28/24 Ordered By: Mike Raymond Referrals: Shelley Morejon MD [Physician, Neurology] - 1 week Concha Ruff FNP-C [Primary Care Provider, Family Practice] Discharge Diet: Usual diet Discharge Activity: Increase activity as tolerated Patient Instructions: Opioid Safety Activity Restrictions/Additional Instructions: #Follow with Neurology within 1 week. Discharge Attestations Time Spent in Discharge Care*: less than 30 min Quality Metrics Clinical Quality Measures [ No reported AMI, CVA or VTE this stay] Coding Level of Care Code Acute Code for Chg Fwd Diagnoses Difficulty walking R26.2 Partial epilepsy secondarily generalized Dystonia G24.9 Meige syndrome (blepharospasm with oromandibular dystonia) G24.4 Generalized epilepsy G40.309
--- NOTE | 2024-08-28 15:32 | PC.NURSE ---
Called prescription antibiotic into [facility] at the request of patient's family.
== END 2024-08-28 16:11 | disposition home or self-care (01) | DRG 101 ==
LOC: ER 18:39 → MEDSURG 19:33
PROVIDERS: Admitting Provider Student in an Organized Health Care Education/Training Program; Emergency Provider Emergency Medicine; PCP Nurse Practitioner Family; Visit Provider Student in an Organized Health Care Education/Training Program
DX: G40.109 Localization-related (focal) (partial) symptomatic epilepsy and epileptic syndromes with simple partial seizures, not intractable, without status epilepticus (principal); N39.0 Urinary tract infection, site not specified; F84.0 Autistic disorder; F31.60 Bipolar disorder, current episode mixed, unspecified; R53.1 Weakness; G24.5 Blepharospasm; G24.4 Idiopathic orofacial dystonia; F80.9 Developmental disorder of speech and language, unspecified; R26.2 Difficulty in walking, not elsewhere classified; D69.6 Thrombocytopenia, unspecified; Z87.440 Personal history of urinary (tract) infections
CPT/HCPCS: 36415; 70496; 70498; 71045; 80048; 80053; 81001; 82140; 83690; 83735; 84443; 84703; 85025; 87086; 93005; 97161; 97165; 99285; J0696; J7030; J7799; J9999

== ENCOUNTER → 2024-09-01 09:10 | Outpatient (BNVA) | payer MEDICAID, SELFPAY | PROVIDERS: PCP Nurse Practitioner; Visit Provider Nurse Practitioner Family | DX: R94.31 Abnormal electrocardiogram [ECG] [EKG] (principal); F80.9 Developmental disorder of speech and language, unspecified; G24.4 Idiopathic orofacial dystonia; F84.0 Autistic disorder; E66.813 Obesity, class 3; E66.01 Morbid (severe) obesity due to excess calories; Z68.43 Body mass index [BMI] 50.0-59.9, adult; G40.909 Epilepsy, unspecified, not intractable, without status epilepticus | CPT/HCPCS: 99213 ==

== ENCOUNTER → 2024-10-20 12:00 | Outpatient (BNVA) | payer MEDICAID, SELFPAY | PROVIDERS: PCP Nurse Practitioner; Visit Provider Specialist | DX: G40.109 Localization-related (focal) (partial) symptomatic epilepsy and epileptic syndromes with simple partial seizures, not intractable, without status epilepticus (principal); F84.0 Autistic disorder; G24.4 Idiopathic orofacial dystonia; F80.9 Developmental disorder of speech and language, unspecified | CPT/HCPCS: 99214 ==

== ENCOUNTER → 2024-11-11 09:14 | Outpatient (BNVA) | payer MEDICAID, SELFPAY | PROVIDERS: PCP Nurse Practitioner; Visit Provider Specialist | DX: G24.4 Idiopathic orofacial dystonia (principal); G40.109 Localization-related (focal) (partial) symptomatic epilepsy and epileptic syndromes with simple partial seizures, not intractable, without status epilepticus; F84.0 Autistic disorder; F80.9 Developmental disorder of speech and language, unspecified | CPT/HCPCS: 64612; 99213; J0585; J9999 ==

== ENCOUNTER → 2025-02-17 08:14 | Outpatient (BNVA) | payer MEDICAID, SELFPAY | PROVIDERS: PCP Nurse Practitioner; Visit Provider Specialist | DX: G24.4 Idiopathic orofacial dystonia (principal); G40.109 Localization-related (focal) (partial) symptomatic epilepsy and epileptic syndromes with simple partial seizures, not intractable, without status epilepticus; F84.0 Autistic disorder; F80.9 Developmental disorder of speech and language, unspecified | CPT/HCPCS: 64612; 99213; J0585; J9999 ==

== ENCOUNTER → 2025-04-05 14:12 | Outpatient (BNVA) | payer MEDICAID, SELFPAY | PROVIDERS: PCP Nurse Practitioner; Visit Provider Internal Medicine Cardiovascular Disease | DX: R94.31 Abnormal electrocardiogram [ECG] [EKG] (principal); I51.89 Other ill-defined heart diseases; F80.9 Developmental disorder of speech and language, unspecified; G24.4 Idiopathic orofacial dystonia; F84.0 Autistic disorder; E66.9 Obesity, unspecified; Z68.42 Body mass index [BMI] 45.0-49.9, adult; G40.909 Epilepsy, unspecified, not intractable, without status epilepticus | CPT/HCPCS: 99213 ==